=== PATIENT | female | born 1955 | race Caucasian/White ===

== ENCOUNTER 2019-03-28 11:12 | Emergency (ER) | payer BC ==
[2019-03-28] MEDS ORDERED: Phenylephrine 0.5% Nasal Spray 15 ML Bot NASBOTH ONE (11:44)
--- NOTE | 2019-03-28 11:49 | EDM.PDOC ---
ED HPI GENERAL MEDICAL PROBLEM - General Chief Complaint: ENT Problem Stated Complaint: BLOODY NOSE FOR 1 HOUR Time Seen by Provider: 03/28/19 11:25 Source of Information: Reports: Patient History Limitations: Reports: No Limitations - History of Present Illness INITIAL COMMENTS - FREE TEXT/NARRATIVE: 63 y/o female with history of HTN presents to ER with cc nose bleed. She reports the bleeding started about 1000 am this morning. She reports her blood pressure is elevated this morning. She has not taken her B/P medications yet. She denies any weakness, fatigue or dizziness. She states she has had a nose bleed one other time. Her PCP is Miriam Dick. She is no apparent distress at this time. Onset: Today, Sudden Onset Date: 03/28/19 Onset Time: 10:00 Duration: Getting Worse Location: Reports: Face Severity: Mild Improves with: Reports: None Worsens with: Reports: None Associated Symptoms: Denies: Chest Pain, Cough, Fever/Chills, Shortness of Breath, Syncope - Related Data Allergies Allergy/AdvReac Type Severity Reaction Status Date / Time No Known Allergies Allergy Verified 03/28/19 11:26 Home Meds: Home Meds Lisinopril/Hydrochlorothiazide [Lisinopril-Hctz 10-12.5 mg Tab] 1 tab PO 1200 [History] Simvastatin [Zocor] 40 mg PO 1200 03/28/19 [History] Past Medical History Cardiovascular History: Reports: High Cholesterol, Hypertension Social & Family History - Tobacco Use Smoking Status *Q: Current Every Day Smoker Years of Tobacco use: 40 Packs/Tins Daily: 1 - Caffeine Use Caffeine Use: Reports: Coffee - Recreational Drug Use Recreational Drug Use: No ED ROS ENT - Review of Systems Review Of Systems: See Below Constitutional: Denies: Fever, Chills HEENT: Reports: Glasses, Nosebleed Respiratory: Denies: Shortness of Breath Cardiovascular: Denies: Chest Pain Endocrine: Denies: Fatigue GI/Abdominal: Reports: No Symptoms Musculoskeletal: Reports: No Symptoms Skin: Reports: No Symptoms Neurological: Reports: No Symptoms Psychiatric: Reports: No Symptoms Hematologic/Lymphatic: Reports: No Symptoms Immunologic: Reports: No Symptoms ED EXAM, ENT - Physical Exam Exam: See Below Exam Limited By: No Limitations General Appearance: Alert, WD/WN, No Apparent Distress Nose: Normal Inspection, Normal Mucousa, No Blood. No: Nasal Deformity, Nasal Tenderness, Septal Deformity, Active Bleeding Mouth/Throat: Normal Inspection, Normal Gums, Normal Lips, Normal Oropharynx, Normal Teeth Respiratory/Chest: No Respiratory Distress, Lungs Clear, Normal Breath Sounds, No Accessory Muscle Use, Chest Non-Tender Cardiovascular: Normal Peripheral Pulses, Regular Rate, Rhythm, No Edema, No Gallop, No JVD, No Murmur, No Rub Neurological: Alert, Oriented, Normal Cognition, Normal Gait Psychiatric: Normal Affect, Normal Mood Skin: Warm, Dry, Intact, Normal Color, No Rash Lymphatic: No Adenopathy Course - Vital Signs Last Recorded V/S: Last Vital Signs Temp 98.7 F 03/28/19 11:22 Pulse 100 03/28/19 11:22 Resp 20 03/28/19 11:22 BP 154/98 H 03/28/19 11:22 Pulse Ox 96 03/28/19 11:22 - Orders/Labs/Meds Meds: Medications Discontinued Medications Generic Name Dose Route Start Last Admin Trade Name Barbie PRN Reason Stop Dose Admin Oxymetazoline HCl 1 ml 03/28/19 11:50 03/28/19 11:55 Afrin Original 0.05% Nasal [place] BRAYAN 03/28/19 11:51 Not Given ONETIME ONE Oxymetazoline HCl 1 ml 03/28/19 11:55 03/28/19 11:56 Nasal Decongestant [place] BRAYAN 03/28/19 11:56 1 ml ONETIME ONE Administration Oxymetazoline HCl Confirm 03/28/19 11:53 03/28/19 11:56 Nasal Decongestant [place] Administered 03/28/19 11:54 Not Given Dose 30 ml .ROUTE .STK-MED ONE Phenylephrine HCl 1 ml 03/28/19 11:44 03/28/19 11:55 Herman-Synephrine 0.5% Regular Nasal [place] NASBOTH 03/28/19 11:45 Not Given ONETIME ONE - Re-Assessments/Exams Free Text/Narrative Re-Assessment/Exam: 03/28/19 12:17 hemostasis obtained after using nose clamp and neosynephrine. I will monitor 10 more minutes then discharge home. 03/28/19 12:33 Hemostasis is still presents. I will discharge home with instructions to follow up with her PCP. Instructed no to blow or pick her nose. I recommend she take B/P medication as prescribed and to use a cool mist vaporizer. Instructed to return to the ER for any new or acute worsening symptoms. Patient verbalized understanding and is comfortable with plan for discharge. Departure - Departure Time of Disposition: 12:35 Disposition: Home, Self-Care 01 Condition: Good Clinical Impression: Bloody nose - Discharge Information Instructions: Nosebleed, [id number] Referrals: Miriam Dick NP [Primary Care Provider] - Forms: ED Department Discharge Additional Instructions: You have been diagnosis with a nose bleed. I recommend you not blow or pick your nose for a few day. Monitor your B/P and take medications as prescribed. I recommend you use a cool mist vaporizer. Follow up with your PCP. Return to the ER for any new or acute worsening symptoms.
[2019-03-28] MEDS ORDERED: Oxymetazoline 0.05% Nasal Spray 15 ML Bottle NAS ONE (11:50)
[2019-03-28] MEDS ORDERED: Oxymetazoline 0.05% Nasal Spray 30 ML Bottle ONE (11:53)
[2019-03-28] MEDS ORDERED: Oxymetazoline 0.05% Nasal Spray 30 ML Bottle NAS ONE (11:55)
== END 2019-03-28 12:45 | disposition home or self-care (01) ==
LOC: JD.ED 11:12
DX: R04.0 Epistaxis (principal); I10 Essential (primary) hypertension; F17.210 Nicotine dependence, cigarettes, uncomplicated
CPT/HCPCS: 99283

== ENCOUNTER 2021-07-19 14:17 | Emergency (ER) | payer MEDICARE, OTHER ==
[2021-07-19] MEDS ORDERED: Albuterol 0.083% 2.5 MG/3 ML Neb Soln NEB ONE (16:30)
[2021-07-19] MEDS ORDERED: predniSONE 20 MG Tab PO STA (17:16)
[2021-07-19] MEDS ORDERED: Benzonatate 100 MG Cap PO ONE ×2 (17:16→17:19)
[2021-07-19] MEDS ORDERED: Azithromycin 250 MG Tab PO STA (17:16)
[2021-07-19] MEDS ORDERED: Albuterol 6.7 GM Inhaler INH PRN (17:16)
--- NOTE | 2021-07-19 17:25 | EDM.PDOC ---
ED HPI GENERAL MEDICAL PROBLEM - General Chief Complaint: Respiratory Problem Stated Complaint: COVID- SENT BY [place] Time Seen by Provider: 07/19/21 14:39 Source of Information: Reports: Patient History Limitations: Reports: No Limitations - History of Present Illness INITIAL COMMENTS - FREE TEXT/NARRATIVE: 65-year-old female presents the emergency department with complaints of cough, chest congestion and shortness of breath. She states that the symptoms started about 3 days ago. She went to the walk-in clinic today and they sent her to the emergency department. Patient denies any recent fever, chills, nausea, vomiting or diarrhea. She denies headache or sore throat. She denies any other symptoms. Of note, the patient is a pack-a-day smoker for the past 50 years. Her primary care provider is Latanya Dick. She denies any abdominal pain or urinary symptoms. - Related Data Allergies Allergy/AdvReac Type Severity Reaction Status Date / Time choline fenofibrate Allergy Hives Verified 07/19/21 14:40 [From Trilipix] Home Meds: Home Meds Lisinopril/Hydrochlorothiazide [Lisinopril-Hctz 10-12.5 mg Tab] 1 tab PO 1200 03/28/19 [History] Simvastatin [Zocor] 40 mg PO 1200 03/28/19 [History] Azithromycin [Zithromax] 250 mg PO DAILY #4 tablet 07/19/21 [Rx] Benzonatate [Tessalon Perle] 100 mg PO TID PRN #18 capsule 07/19/21 [Rx] predniSONE [Prednisone] 40 mg PO DAILY #8 tablet 07/19/21 [Rx] Past Medical History Cardiovascular History: Reports: High Cholesterol, Hypertension 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 ED EXAM, GENERAL - Physical Exam Exam: See Below Exam Limited By: No Limitations General Appearance: Alert, WD/WN, Mild Distress Ears: Normal External Exam, Hearing Grossly Normal Nose: Normal Inspection Throat/Mouth: Normal Inspection, Normal Lips, Normal Voice, No Airway Compromise Head: Atraumatic Neck: Normal Inspection, Supple Respiratory/Chest: Lungs Clear, No Accessory Muscle Use, Chest Non-Tender, Decreased Breath Sounds Cardiovascular: Normal Peripheral Pulses, Regular Rate, Rhythm, No Edema, No Murmur Peripheral Pulses: 2+: Radial (L), Radial (R) GI/Abdominal: Normal Bowel Sounds, Soft, Non-Tender, No Distention (Female) Exam: Deferred Rectal (Female) Exam: Deferred Back Exam: Normal Inspection Extremities: Normal Inspection, Normal Range of Motion, Non-Tender, No Pedal Edema, Normal Capillary Refill Neurological: Alert, Oriented, Normal Cognition Psychiatric: Normal Affect, Normal Mood Skin Exam: Warm, Dry, Intact, Normal Color, No Rash Lymphatic: No Adenopathy Course - Vital Signs Text/Narrative:: As stated above, patient presents for a 3-day history of cough, chest congestion and shortness of breath. She does have a significant smoking history and likely has COPD. Chest x-ray and Covid swab have been ordered on the patient. Lung sounds are diminished throughout. Patient's O2 saturations when I am sitting at the bedside with her are 91 to 92% however when she does begin to cough they dropped down to about 84 to 85%. I will also order albuterol nebulizer treatment on the patient. Last Recorded V/S: Last Vital Signs Temp 98.0 F 07/19/21 14:38 Pulse 91 07/19/21 14:38 Resp 22 H 07/19/21 14:38 BP 165/104 H 07/19/21 14:38 Pulse Ox 91 L 07/19/21 16:30 - Orders/Labs/Meds Orders: Active Orders 24 hr Category Date Time Status RT Aerosol Therapy [RC] ASDIRECTED Care 07/19/21 16:30 Active RT Post Treatment Assessment [RC] Click to Edit Care 07/19/21 17:17 Ordered RT Pre-Treatment Assessment [RC] Click to Edit Care 07/19/21 17:17 Ordered Chest 2V [CR] Stat Exams 07/19/21 16:07 Taken Albuterol [Proventil HFA] Med 07/19/21 17:16 Ordered See Dose Instructions INH Q2H PRN Azithromycin [Zithromax] Med 07/19/21 17:16 Stat 500 mg PO NOW STA Benzonatate [Tessalon Perles] Med 07/19/21 17:16 Once 100 mg PO ONETIME ONE Benzonatate [Tessalon Perles] Med 07/19/21 17:19 Once 100 mg PO ONETIME ONE predniSONE Med 07/19/21 17:16 Stat 40 mg PO NOW STA Medication Orders Albuterol (Albuterol 6.7 Gm Inhaler) 0 gm INH Q2H PRN PRN Reason: Shortness of Breath Azithromycin (Azithromycin 250 Mg Tab) 500 mg PO NOW STA Stop: 07/19/21 17:17 Benzonatate (Benzonatate 100 Mg Cap) 100 mg PO ONETIME ONE Stop: 07/19/21 17:17 Prednisone (Prednisone 20 Mg Tab) 40 mg PO NOW STA Stop: 07/19/21 17:17 Labs: Laboratory Tests 07/19/21 Range/Units 14:44 SARS-CoV-2 RNA (RADHA) Negative (NEGATIVE) Meds: Medications Generic Name Dose Route Start Last Admin Trade Name Freq PRN Reason Stop Dose Admin Albuterol 0 gm 07/19/21 17:16 Albuterol 6.7 Gm Inhaler INH Q2H PRN Shortness of Breath Azithromycin 500 mg 07/19/21 17:16 Azithromycin 250 Mg Tab PO 07/19/21 17:17 NOW STA Benzonatate 100 mg 07/19/21 17:16 Benzonatate 100 Mg Cap PO 07/19/21 17:17 ONETIME ONE Prednisone 40 mg 07/19/21 17:16 Prednisone 20 Mg Tab PO 07/19/21 17:17 NOW STA Discontinued Medications Generic Name Dose Route Start Last Admin Trade Name Freq PRN Reason Stop Dose Admin Albuterol 2.5 mg 07/19/21 16:30 07/19/21 16:50 Albuterol 0.083% 2.5 Mg/3 Ml Neb Soln NEB 07/19/21 16:31 2.5 mg ONETIME ONE Administration - Re-Assessments/Exams Free Text/Narrative Re-Assessment/Exam: 07/19/21 17:27 Chest xray was reviewed by myself and Dr. Wasserman. Nothing acute is appreciated. Formal radiologist report is pending. I did discuss with the patient the fact that her oxygen levels do drop when she is coughing and that this is likely a COPD exacerbation. Did offer admission in the hospital however we do not have any beds available so she would need to be transferred to [place]. Patient adamantly refuses admission into the hospital. I have elected to treat her with Zithromax 500 mg p.o. x1 dose, prednisone 40 mg p.o. x1 dose. She will be given Tessalon Perles for her cough. She will be discharged to home and I have sent a prescription for Zithromax 250 mg p.o. x4 days as well as prednisone 40 mg daily times another 4 days. She will be sent h ome with an albuterol inhaler. I have notified her that she will need to follow-up with her primary care provider in 1 week for reevaluation. She states she is agreeable to this. Departure - Departure Time of Disposition: 17:19 Disposition: Home, Self-Care 01 Condition: Good Clinical Impression: COPD exacerbation - Discharge Information Prescriptions: predniSONE [Prednisone] 40 mg PO DAILY #8 tablet Benzonatate [Tessalon Perle] 100 mg PO TID PRN #18 capsule PRN Reason: Cough Azithromycin [Zithromax] 250 mg PO DAILY #4 tablet Instructions: Chronic Obstructive Pulmonary Disease Exacerbation, [id number] Referrals: Miriam Dick LEAD TELLER [Primary Care Provider] - Additional Instructions: You were seen in the emergency department today with increased cough and shortness of breath. Covid swab was completed and this was negative. Chest x- ray was completed which did not show pneumonia however I believe you have an exacerbation of COPD. While in the emergency department you received a nebulizer treatment which did seem to help slightly. You were given Zithromax 500 mg which is an antibiotic. I have sent prescription to your pharmacy for 4 250 mg tablets. Take 1 tablet daily until gone. I have also sent a prescription for prednisone 40 mg to be taken daily. You were also given this while in the emergency department. I have sent a prescription for a medication called Tessalon Perles. You may take 1-2 tabs 3 times daily for cough. You were given the first dose in the emergency department as well. You are also giv en an albuterol inhaler. He may take 2 puffs every 2-4 hours as needed for shortness of breath. However, the side effect of this can be a rapid heartbeats to be aware of this if you are using it every 2 hours. Go home and rest. Drink plenty of fluids. You will need to follow-up with Diamond Dick in about a week for reevaluation. Should your symptoms worsen or change, do not hesitate returning to the emergency department. Sepsis Event Note (ED) - Focused Exam Vital Signs: Vital Signs Temp Pulse Resp BP Pulse Ox Pulse Ox 07/19/21 16:30 91 L 07/19/21 14:38 98.0 F 91 22 H 165/104 H 90 L - My Orders Last 24 Hours: My Active Orders 07/19/21 16:07 Chest 2V [CR] Stat 07/19/21 16:30 RT Aerosol Therapy [RC] ASDIRECTED 07/19/21 17:16 Albuterol [Proventil HFA] See Dose Instructions INH Q2H PRN Benzonatate [Tessalon Perles] 100 mg PO ONETIME ONE 07/19/21 17:16 Azithromycin [Zithromax] 500 mg PO NOW STA predniSONE 40 mg PO NOW STA 07/19/21 17:17 RT Post Treatment Assessment [RC] Click to Edit RT Pre-Treatment Assessment [RC] Click to Edit 07/19/21 17:19 Benzonatate [Tessalon Perles] 100 mg PO ONETIME ONE - Assessment/Plan Last 24 Hours: My Active Orders 07/19/21 16:07 Chest 2V [CR] Stat 07/19/21 16:30 RT Aerosol Therapy [RC] ASDIRECTED 07/19/21 17:16 Albuterol [Proventil HFA] See Dose Instructions INH Q2H PRN Benzonatate [Tessalon Perles] 100 mg PO ONETIME ONE 07/19/21 17:16 Azithromycin [Zithromax] 500 mg PO NOW STA predniSONE 40 mg PO NOW STA 07/19/21 17:17 RT Post Treatment Assessment [RC] Click to Edit RT Pre-Treatment Assessment [RC] Click to Edit 07/19/21 17:19 Benzonatate [Tessalon Perles] 100 mg PO ONETIME ONE
--- NOTE | 2021-07-19 17:34 | CR ---
Chest: 2 views of the chest were obtained. Comparison: No previous chest imaging is available. Heart is slightly enlarged. Lucency is noted along the lateral left chest most likely representing breast artifact. Lungs are hyperinflated compatible with emphysematous change. No definite acute parenchymal change is seen. Bony structures appear within normal limits for the patient's age. Impression: 1. Emphysematous change. 2. Other findings as noted above. 3. Nothing acute is definitely appreciated. Diagnostic code #2
== END 2021-07-19 17:43 | disposition home or self-care (01) ==
LOC: JD.ED 14:17
DX: J44.1 Chronic obstructive pulmonary disease with (acute) exacerbation (principal); E78.00 Pure hypercholesterolemia, unspecified; I10 Essential (primary) hypertension; Z72.0 Tobacco use; Z88.8 Allergy status to other drugs, medicaments and biological substances; Z79.899 Other long term (current) drug therapy; Z20.822 Contact with and (suspected) exposure to COVID-19
CPT/HCPCS: 71046; 87635; 94640; 99285; A9270; J7512; 99283; U0002

== ENCOUNTER 2021-10-30 14:58 | Emergency (ER) | payer MEDICARE, OTHER ==
[2021-10-30] MEDS ORDERED: Sodium Chloride 0.9% 10 ML Syringe FLUSH PRN (15:27)
[2021-10-30] MEDS ORDERED: Albuterol/Ipratropium 3.0-0.5 MG/3 ML Neb Soln NEB ONE ×2 (15:32→18:07)
--- NOTE | 2021-10-30 15:41 | EDM.PDOC ---
ED HPI GENERAL MEDICAL PROBLEM - General Chief Complaint: Respiratory Problem Stated Complaint: SOB Time Seen by Provider: 10/30/21 15:28 Source of Information: Reports: Patient, RN Notes Reviewed History Limitations: Reports: No Limitations - History of Present Illness INITIAL COMMENTS - FREE TEXT/NARRATIVE: Patient is a 66-year-old female who presents to the ER for evaluation of her respiratory difficulty. States she has had a cold for about the last 2 days. Not complaining of any fevers, but is having a cough and shortness of breath. Patient used to smoke many years ago. States that she has respiratory inhalers at home and has been using these over the past few days however they do not seem to be working well for her at all. She is audibly wheezy when you enter the room, and O2 sats were 66% on room air at triage. She was put on oxygen, and she has improved to a roughly 90% with 4 L. Patient's primary care provider is Miriam Dick. Patient has not been around anyone that is been sick that she is aware of. - Related Data Allergies Allergy/AdvReac Type Severity Reaction Status Date / Time choline fenofibrate Allergy Hives Verified 10/30/21 15:11 [From Trilipix] Home Meds: Home Meds Lisinopril/Hydrochlorothiazide [Lisinopril-Hctz 10-12.5 mg Tab] 1 tab PO 1200 03/28/19 [History] Simvastatin [Zocor] 40 mg PO 1200 03/28/19 [History] Azithromycin [Zithromax] 250 mg PO DAILY #4 tablet 07/19/21 [Rx] Benzonatate [Tessalon Perle] 100 mg PO TID PRN #18 capsule 07/19/21 [Rx] predniSONE [Prednisone] 40 mg PO DAILY #8 tablet 07/19/21 [Rx] Past Medical History Cardiovascular History: Reports: High Cholesterol, Hypertension Genitourinary History: Reports: Renal Calculus 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 ED EXAM, GENERAL - Physical Exam Exam: See Below Exam Limited By: No Limitations General Appearance: Alert, WD/WN, No Apparent Distress Respiratory/Chest: No Accessory Muscle Use, Chest Non-Tender, Decreased Breath Sounds, Wheezing (bilateral diffuse end expiratory), Other (pt has congested non productive cough) Cardiovascular: Normal Peripheral Pulses, Regular Rate, Rhythm, No Edema GI/Abdominal: Normal Bowel Sounds, Soft, Non-Tender, No Distention, No Mass Extremities: Normal Inspection, Normal Capillary Refill Neurological: Alert, Oriented, Normal Cognition, No Motor/Sensory Deficits Psychiatric: Normal Affect, Normal Mood Skin Exam: Warm, Dry, Intact, Normal Color, No Rash #1 Interpretation EKG Date: 10/30/21 Time: 16:30 Rhythm: NSR Rate (Beats/Min): 90 [place]: RAD-Right [place] Deviation P-Wave: Present QRS: Normal ST-T: Normal QT: Normal EKG Interpretation Comments: No obvious ischemia or acute ST changes noted, reviewed by myself and Dr. Wasserman. She did have 1 PAC on EKG, there is a lot of baseline artifact as well compounding things. But no acute abnormalities appreciated. Course - Vital Signs Last Recorded V/S: Last Vital Signs Temp 97 F 10/30/21 15:06 Pulse 94 10/30/21 18:00 Resp 24 H 10/30/21 18:00 BP 134/80 10/30/21 18:00 Pulse Ox 95 10/30/21 18:20 - Orders/Labs/Meds Orders: Active Orders 24 hr Category Date Time Status Oxygen Therapy, ED [RC] ASDIRECTED Care 10/30/21 15:26 Active Peripheral IV Care [RC] . DIRECTED Care 10/30/21 15:27 Active RT Aerosol Therapy [RC] ASDIRECTED Care 10/30/21 15:32 Active Heparin Sodium/D5W [Heparin 25,000 Units in D5W 500 ML] Med 10/30/21 19:45 Active 25,000 units in 500 ml IV TITRATE Sodium Chloride 0.9% [Saline Flush] Med 10/30/21 15:27 Active 10 ml FLUSH ASDIRECTED PRN Peripheral IV Insertion Adult [OM.PC] Routine Oth 10/30/21 15:27 Ordered Medication Orders Heparin Sodium/Dextrose (Heparin 25,000 Units In D5w 500 Ml) 25,000 units in 500 mls @ 17.636 mls/hr IV TITRATE ANNAMARIE; Protocol Last Admin: 10/30/21 20:06 Dose: 12 units/kg/hr, 17.636 mls/hr Documented by: JAMILAH Cosigned by: BARBIE Sodium Chloride (Sodium Chloride 0.9% 10 Ml Syringe) 10 ml FLUSH ASDIRECTED PRN PRN Reason: Keep Vein Open Last Admin: 10/30/21 16:31 Dose: 10 ml Documented by: ALEXANDRA Labs: Laboratory Tests 10/30/21 10/30/21 10/30/21 Range/Units 15:15 15:15 15:15 WBC 13.04 H (3.98-10.04) K/mm3 RBC 5.22 (3.98-5.22) M/mm3 Hgb 16.2 H (11.2-15.7) gm/dl Hct 47.5 H (34.1-44.9) % MCV 91.0 (79.4-94.8) fl MCH 31.0 (25.6-32.2) pg MCHC 34.1 (32.2-35.5) g/dl RDW Std Deviation 42.7 (36.4-46.3) fL Plt Count 255 (182-369) K/mm3 MPV 10.6 (9.4-12.3) fl Neut % (Auto) 80.9 H (34.0-71.1) % Lymph % (Auto) 10.4 L (19.3-51.7) % [place] % (Auto) 5.7 (4.7-12.5) % Eos % (Auto) 2.6 (0.7-5.8) Baso % (Auto) 0.2 (0.1-1.2) % Neut # (Auto) 10.56 H (1.56-6.13) K/mm3 Lymph # (Auto) 1.35 (1.18-3.74) K/mm3 [place] # (Auto) 0.74 H (0.24-0.36) K/mm3 Eos # (Auto) 0.34 (0.04-0.36) K/mm3 Baso # (Auto) 0.03 (0.01-0.08) K/mm3 PT (9.7-12.0) SECONDS INR APTT (21.7-31.4) SECONDS Sodium 131 L (136-145) mEq/L Potassium 4.4 (3.5-5.1) mEq/L Chloride 93 L (98-107) mEq/L Carbon Dioxide 25 (21-32) mEq/L Anion Gap 17.4 H (5-15) BUN 10 (7-18) mg/dL Creatinine 0.6 (0.55-1.02) mg/dL Est Cr Clr Drug Dosing 79.64 mL/min Estimated GFR (MDRD) > 60 (>60) mL/min BUN/Creatinine Ratio 16.7 (14-18) Glucose 133 H (70-99) mg/dL Calcium 9.5 (8.5-10.1) mg/dL Magnesium 2.1 (1.8-2.4) mg/dL Total Bilirubin 1.0 (0.2-1.0) mg/dL AST 23 (15-37) U/L ALT 31 (14-59) U/L Alkaline Phosphatase 98 (46-116) U/L Troponin I 0.215 H* (0.00-0.056) ng/mL C-Reactive Protein < 0.2 (<1.0) mg/dL NT-Pro-B Natriuret Pep (0-125) pg/mL Total Protein 8.2 (6.4-8.2) g/dl Albumin 4.2 (3.4-5.0) g/dl Globulin 4.0 gm/dL Albumin/Globulin Ratio 1.1 (1-2) Influenza Type A RNA (NEGATIVE) Influenza Type B RNA (NEGATIVE) SARS-CoV-2 RNA (RADHA) (NEGATIVE) 10/30/21 10/30/21 10/30/21 Range/Units 15:15 15:15 15:27 WBC (3.98-10.04) K/mm3 RBC (3.98-5.22) M/mm3 Hgb (11.2-15.7) gm/dl Hct (34.1-44.9) % MCV (79.4-94.8) fl MCH (25.6-32.2) pg MCHC (32.2-35.5) g/dl RDW Std Deviation (36.4-46.3) fL Plt Count (182-369) K/mm3 MPV (9.4-12.3) fl Neut % (Auto) (34.0-71.1) % Lymph % (Auto) (19.3-51.7) % [place] % (Auto) (4.7-12.5) % Eos % (Auto) (0.7-5.8) Baso % (Auto) (0.1-1.2) % Neut # (Auto) (1.56-6.13) K/mm3 Lymph # (Auto) (1.18-3.74) K/mm3 [place] # (Auto) (0.24-0.36) K/mm3 Eos # (Auto) (0.04-0.36) K/mm3 Baso # (Auto) (0.01-0.08) K/mm3 PT 10.5 (9.7-12.0) SECONDS INR 0.94 APTT 29.1 (21.7-31.4) SECONDS Sodium (136-145) mEq/L Potassium (3.5-5.1) mEq/L Chloride (98-107) mEq/L Carbon Dioxide (21-32) mEq/L Anion Gap (5-15) BUN (7-18) mg/dL Creatinine (0.55-1.02) mg/dL Est Cr Clr Drug Dosing mL/min Estimated GFR (MDRD) (>60) mL/min BUN/Creatinine Ratio (14-18) Glucose (70-99) mg/dL Calcium (8.5-10.1) mg/dL Magnesium (1.8-2.4) mg/dL Total Bilirubin (0.2-1.0) mg/dL AST (15-37) U/L ALT (14-59) U/L Alkaline Phosphatase (46-116) U/L Troponin I (0.00-0.056) ng/mL C-Reactive Protein (<1.0) mg/dL NT-Pro-B Natriuret Pep 491 H (0-125) pg/mL Total Protein (6.4-8.2) g/dl Albumin (3.4-5.0) g/dl Globulin gm/dL Albumin/Globulin Ratio (1-2) Influenza Type A RNA Negative (NEGATIVE) Influenza Type B RNA Negative (NEGATIVE) SARS-CoV-2 RNA (RADHA) Negative (NEGATIVE) 10/30/21 Range/Units 18:39 WBC (3.98-10.04) K/mm3 RBC (3.98-5.22) M/mm3 Hgb (11.2-15.7) gm/dl Hct (34.1-44.9) % MCV (79.4-94.8) fl MCH (25.6-32.2) pg MCHC (32.2-35.5) g/dl RDW Std Deviation (36.4-46.3) fL Plt Count (182-369) K/mm3 MPV (9.4-12.3) fl Neut % (Auto) (34.0-71.1) % Lymph % (Auto) (19.3-51.7) % [place] % (Auto) (4.7-12.5) % Eos % (Auto) (0.7-5.8) Baso % (Auto) (0.1-1.2) % Neut # (Auto) (1.56-6.13) K/mm3 Lymph # (Auto) (1.18-3.74) K/mm3 [place] # (Auto) (0.24-0.36) K/mm3 Eos # (Auto) (0.04-0.36) K/mm3 Baso # (Auto) (0.01-0.08) K/mm3 PT (9.7-12.0) SECONDS INR APTT (21.7-31.4) SECONDS Sodium (136-145) mEq/L Potassium (3.5-5.1) mEq/L Chloride (98-107) mEq/L Carbon Dioxide (21-32) mEq/L Anion Gap (5-15) BUN (7-18) mg/dL Creatinine (0.55-1.02) mg/dL Est Cr Clr Drug Dosing mL/min Estimated GFR (MDRD) (>60) mL/min BUN/Creatinine Ratio (14-18) Glucose (70-99) mg/dL Calcium (8.5-10.1) mg/dL Magnesium (1.8-2.4) mg/dL Total Bilirubin (0.2-1.0) mg/dL AST (15-37) U/L ALT (14-59) U/L Alkaline Phosphatase (46-116) U/L Troponin I 0.255 H* (0.00-0.056) ng/mL C-Reactive Protein (<1.0) mg/dL NT-Pro-B Natriuret Pep (0-125) pg/mL Total Protein (6.4-8.2) g/dl Albumin (3.4-5.0) g/dl Globulin gm/dL Albumin/Globulin Ratio (1-2) Influenza Type A RNA (NEGATIVE) Influenza Type B RNA (NEGATIVE) SARS-CoV-2 RNA (RADHA) (NEGATIVE) Meds: Medications Generic Name Dose Route Start Last Admin Trade Name Freq PRN Reason Stop Dose Admin Heparin Sodium/Dextrose 25,000 units in 500 mls @ 17.636 mls/hr 10/30/21 19:45 10/30/21 20:06 Heparin 25,000 Units In D5w 500 Ml IV 12 units/kg/hr TITRATE ANNAMARIE 17.636 mls/hr Administration Protocol 12 UNITS/KG/HR Sodium Chloride 10 ml 10/30/21 15:27 10/30/21 16:31 Sodium Chloride 0.9% 10 Ml Syringe FLUSH 10 ml ASDIRECTED PRN Administration Keep Vein Open Discontinued Medications Generic Name Dose Route Start Last Admin Trade Name Freq PRN Reason Stop Dose Admin Albuterol/Ipratropium 3 ml 10/30/21 15:32 10/30/21 16:24 Albuterol/Ipratropium 3.0-0.5 Mg/3 Ml Neb Soln [facility] 10/30/21 15:33 3 ml ONETIME ONE Administration Albuterol/Ipratropium 3 ml 10/30/21 18:07 10/30/21 18:19 Albuterol/Ipratropium 3.0-0.5 Mg/3 Ml Neb Soln [facility] 10/30/21 18:08 3 ml ONETIME ONE Administration Aspirin 324 mg 10/30/21 16:21 10/30/21 16:35 Aspirin 81 Mg Tab.Chew PO 10/30/21 16:22 324 mg ONETIME ONE Administration Heparin Sodium (Porcine) 4,000 units 10/30/21 19:31 10/30/21 20:06 Heparin Sodium 5,000 Units/Ml Vial IVPUSH 10/30/21 19:32 4,000 units .BOLUS ONE Administration Methylprednisolone Sodium Succinate 125 mg 10/30/21 19:53 10/30/21 20:06 Methylprednisolone Sodium Succinate 125 Mg/2 Ml Sdv IVPUSH 10/30/21 19:54 125 mg ONETIME ONE Administration - Re-Assessments/Exams Free Text/Narrative Re-Assessment/Exam: 10/30/21 15:40 Patient presents to the ER for evaluation of her hypoxia, shortness of breath. We will go ahead and get x-rays, Covid swab was obtained at the time of triage, along with IV that was placed and labs were taken. Patient is on oxygen at this time. Patient does not typically wear oxygen at home. 10/30/21 17:02 Labs have resulted, white count mildly elevated at 13,000 with 80% neutrophils patient's troponin was elevated at 0.215 BNP mildly elevated at 491, CRP was negative, and her COVID-19 screen was negative as well. I did go in to reevaluate the patient and she states that she is feeling a little bit better, her wheezing has subsided a bit with the DuoNeb treatment. Due to the elevated troponin I ordered 324 mg p.o. aspirin initially and I will talk with cardiology at [facility] in [place], and possibly send the patient for further evaluation due to the elevated troponin levels. EKG did not show any obvious ST change or abnormalities and the patient has been chest pain-free. 10/30/21 19:33 Patient's repeat Trop did increase to 0.255. I did call Dr. Warren the [employer]ef[employer] plant operator at [facility], he does recommend that Heparin be started, so this has been ordered. Dr. Sarmiento, hospitalist on-call will ultimately accept the patient for transfer. Departure - Departure Time of Disposition: 19:35 Disposition: DC/Tfer to Acute Hospital 02 Condition: Good Clinical Impression: COPD with acute exacerbation, Hypoxia, Non-STEMI (non-ST elevated myocardial infarction) - Discharge Information Referrals: Miriam Dick NP [Primary Care Provider] - Forms: ED Department Discharge Sepsis Event Note (ED) - Evaluation Sepsis Screening Result: No Definite Risk - Focused Exam Vital Signs: Vital Signs Temp Pulse Resp BP Pulse Ox Pulse Ox 10/30/21 18:20 95 10/30/21 18:00 94 24 H 134/80 94 L 10/30/21 17:00 97 24 H 142/88 H 90 L 10/30/21 16:25 90 L 10/30/21 16:00 91 24 H 135/71 90 L 10/30/21 15:15 92 L 10/30/21 15:06 97 F 62 20 157/82 H 66 L - My Orders Last 24 Hours: My Active Orders 10/30/21 15:26 Oxygen Therapy, ED [RC] ASDIRECTED 10/30/21 15:27 Peripheral IV Care [RC] . DIRECTED Sodium Chloride 0.9% [Saline Flush] 10 ml FLUSH ASDIRECTED PRN Peripheral IV Insertion Adult [OM.PC] Routine 10/30/21 15:32 RT Aerosol Therapy [RC] ASDIRECTED 10/30/21 19:45 Heparin Sodium/D5W [Heparin 25,000 Units in D5W 500 ML] 25,000 units in 500 ml IV TITRATE - Assessment/Plan Last 24 Hours: My Active Orders 10/30/21 15:26 Oxygen Therapy, ED [RC] ASDIRECTED 10/30/21 15:27 Peripheral IV Care [RC] . DIRECTED Sodium Chloride 0.9% [Saline Flush] 10 ml FLUSH ASDIRECTED PRN Peripheral IV Insertion Adult [OM.PC] Routine 10/30/21 15:32 RT Aerosol Therapy [RC] ASDIRECTED 10/30/21 19:45 Heparin Sodium/D5W [Heparin 25,000 Units in D5W 500 ML] 25,000 units in 500 ml IV TITRATE
--- NOTE | 2021-10-30 16:00 | CR ---
Chest: Frontal view of the chest was obtained. Comparison: Prior chest x-ray of 07/19/21. Heart size and mediastinum are within normal limits. Lungs are hyperinflated compatible with emphysematous change. No acute parenchymal change is seen within the lungs. Bony structures show nothing acute. Impression: 1. Emphysematous change. 2. Nothing acute is seen on frontal chest x-ray. Diagnostic code #2
[2021-10-30 16:10] LABS: CORONAVIRUS COVID-19 NAA NEGATIVE (NEGATIVE)
[2021-10-30] MEDS ORDERED: Aspirin 81 MG Tab.Chew PO ONE (16:21)
[2021-10-30] MEDS ORDERED: Heparin Sodium 5,000 Units/ML Vial IVPUSH ONE (19:31)
[2021-10-30] MEDS ORDERED: Heparin Sodium/D5W 25,000 UNITS/500 ML BAG IV SCH (19:45)
[2021-10-30] MEDS ORDERED: methylPREDNISolone Sodium Succinate 125 MG/2 ML SDV IVPUSH ONE (19:53)
== END 2021-10-30 21:54 ==
LOC: JD.ED 14:58
DX: J44.1 Chronic obstructive pulmonary disease with (acute) exacerbation (principal); I21.4 Non-ST elevation (NSTEMI) myocardial infarction; R09.02 Hypoxemia; E78.00 Pure hypercholesterolemia, unspecified; I10 Essential (primary) hypertension; Z88.8 Allergy status to other drugs, medicaments and biological substances; Z79.899 Other long term (current) drug therapy; Z87.891 Personal history of nicotine dependence; Z20.822 Contact with and (suspected) exposure to COVID-19
CPT/HCPCS: 0240U; 36415; 71045; 80053; 83735; 83880; 84484; 85025; 85610; 85730; 86140; 93005; 94640; 96365; 96366; 96375; 99285; A9270; J1644; J2930; 93010; J7620-GY

== ENCOUNTER 2021-11-14 23:16 | Emergency (ER) | payer MEDICARE, OTHER ==
[2021-11-15] MEDS ORDERED: Albuterol 0.083% 2.5 MG/3 ML Neb Soln NEB ONE (00:01)
[2021-11-15] MEDS ORDERED: predniSONE 20 MG Tab PO STA (00:02)
--- NOTE | 2021-11-15 00:05 | EDM.PDOC ---
ED HPI GENERAL MEDICAL PROBLEM - General Chief Complaint: Respiratory Problem Stated Complaint: SOB Time Seen by Provider: 11/14/21 23:40 Source of Information: Reports: Patient History Limitations: Reports: No Limitations - History of Present Illness INITIAL COMMENTS - FREE TEXT/NARRATIVE: Mrs. Sprague is a very pleasant 66-year-old woman with a past medical history significant for PFT-proven COPD, who now presents the ED stating that she developed dyspnea with slight wheezing around 19:00 tonight, while sitting. She states that she took 2 inhalations of an albuterol MDI (without using a spacer chamber) and a single DuoNeb by nebulizer without improvement of her symptoms. She states that she has had similar symptoms many times in the past, but that she can usually successfully treat them at home. At triage, the patient's initial BP was found to be elevated 186/112, with tachycardia 122 bpm and slight tachypnea of 25 rpm. She was afebrile, but hypoxemic, with an initial SpO2 of 71% on room air, 94% on 4 L of oxygen per nasal cannula. She appeared to be cyanotic at triage. When I evaluated her, she appeared to be relatively comfortable, although preferred sitting upright, not quite tripoding. She does not appear to be in acute distress. The patient does not have home supplemental oxygen. Prior to tonight, the patient denies having a recent fever, chills, sore throat, ear pain, nasal or sinus congestion, cough, dyspnea, chest pain, palpitations, nausea, vomiting, constipation, diarrhea, abdominal pain, urinary symptoms, recent weight gain or weight loss, recent bloody bowel movements or black bowel movements, recent joint aches, headaches, or rashes. The patient's PCP is Miriam Dick NP. Her Canvas Shrinker is Dr. Wai Warren, at [facility]. She has received 2 Pfizer COVID vaccinations plus an influenza vaccination this season. - Related Data Allergies Allergy/AdvReac Type Severity Reaction Status Date / Time choline fenofibrate Allergy Hives Verified 11/14/21 23:28 [From Trilipix] Home Meds: Home Meds Lisinopril/Hydrochlorothiazide [Lisinopril-Hctz 10-12.5 mg Tab] 1 tab PO 1200 03/28/19 [History] Simvastatin [Zocor] 40 mg PO 1200 03/28/19 [History] Azithromycin [Zithromax] 250 mg PO DAILY #4 tablet 07/19/21 [Rx] Benzonatate [Tessalon Perle] 100 mg PO TID PRN #18 capsule 07/19/21 [Rx] predniSONE [Prednisone] 40 mg PO DAILY #8 tablet 07/19/21 [Rx] predniSONE [Prednisone] 1 tab PO BEDTIME #5 tablet 11/15/21 [Rx] Past Medical History Cardiovascular History: Reports: High Cholesterol, Hypertension Respiratory History: Reports: COPD (PFT-proven) Genitourinary History: Reports: Renal Calculus - Past Surgical History Cardiovascular Surgical History: Reports: Other (See Below) (Coronary angiogram x 2 - clean) Social & Family History - Tobacco Use Tobacco Use Status *Q: Current Every Day Tobacco User Years of Tobacco use: 48 Packs/Tins Daily: 1.5 Month/Year Tobacco Last Used: Quit Sep 2021 Tobacco Use Comment: Started smoking 1972 - Caffeine Use Caffeine Use: Reports: Coffee - Alcohol Use Alcohol Use History: Yes Alcohol Use Frequency: Socially - Recreational Drug Use Recreational Drug Use: No - Living Situation & Occupation Living situation: Reports: , with Spouse, with Family (2 sons) Occupation: Unemployed ED ROS GENERAL - Review of Systems Review Of Systems: Comprehensive ROS is negative, except as noted in HPI. ED EXAM, GENERAL - Physical Exam Exam: See Below Exam Limited By: No Limitations General Appearance: Alert, WD/WN, No Apparent Distress Eye Exam: Bilateral Eye: EOMI, Normal Inspection Ears: Normal External Exam, Hearing Grossly Normal Nose: Normal Inspection Throat/Mouth: Normal Inspection, Normal Lips, Normal Voice, No Airway Compromise Head: Atraumatic, Normocephalic Neck: Normal Inspection, Full Range of Motion Respiratory/Chest: No Accessory Muscle Use, Decreased Breath Sounds, Wheezing (faint, expiratory), Prolonged Expiration. No: Crackles, Rhonchi, Accessory Muscle Use Cardiovascular: Normal Peripheral Pulses, No Edema, No Gallop, No JVD, No Murmur, No Rub, Tachycardia (regular) Peripheral Pulses: 3+: Radial (L), Radial (R) GI/Abdominal: Normal Bowel Sounds, Soft, Non-Tender, No Organomegaly, No Distention, No Abnormal Bruit, No Mass Back Exam: Normal Inspection, Full Range of Motion, NT Extremities: Normal Inspection, Normal Range of Motion, No Pedal Edema, Normal Capillary Refill Neurological: Alert, Oriented, Normal Cognition, No Motor/Sensory Deficits Psychiatric: Normal Affect Skin Exam: Warm, Dry, Intact, Normal Color, No Rash #1 Interpretation EKG Date: 11/15/21 Time: 00:46 Rhythm: Other (Sinus tachycardia) Rate (Beats/Min): 108 [place]: RAD-Right [place] Deviation P-Wave: Present QRS: Other (Late transition) ST-T: Normal QT: Normal Comparison: No Change (10/30/2021) Course - Vital Signs Last Recorded V/S: Last Vital Signs Temp 36.1 C 11/14/21 23:28 Pulse 122 H 11/14/21 23:28 Resp 25 H 11/14/21 23:28 BP 186/112 H 11/14/21 23:28 Pulse Ox 94 L 11/15/21 02:12 - Orders/Labs/Meds Labs: Laboratory Tests 11/14/21 11/14/21 11/14/21 Range/Units 00:17 00:17 00:17 WBC 16.15 H (3.98-10.04) K/mm3 RBC 4.92 (3.98-5.22) M/mm3 Hgb 15.3 (11.2-15.7) gm/dl Hct 45.6 H (34.1-44.9) % MCV 92.7 (79.4-94.8) fl MCH 31.1 (25.6-32.2) pg MCHC 33.6 (32.2-35.5) g/dl RDW Std Deviation 43.6 (36.4-46.3) fL Plt Count 260 (182-369) K/mm3 MPV 10.0 (9.4-12.3) fl Neutrophils % (Manual) 82 H (40-60) % Band Neutrophils % 0 (0-10) % Lymphocytes % (Manual) 11 L (20-40) % Atypical Lymphs % 0 % Monocytes % (Manual) 3 (2-10) % Eosinophils % (Manual) 4 (0.7-5.8) % Basophils % (Manual) 0 L (0.1-1.2) Platelet Estimate Adequate Plt Morphology Comment Normal RBC Morph Comment Normal D-Dimer, Quantitative 0.25 (0.19-0.50) mg/L Puncture Site ABG pH (7.35-7.45) ABG pCO2 (35.0-45.0) mmHg ABG pO2 (80.0-100.0) mmHg ABG HCO3 (22.0-26.0) meq/L ABG O2 Saturation (96.0-97.0) % ABG Base Excess (-2-2.0) A-a Gradient mmHg O2 Delivery Device Oxygen Flow Rate FiO2 (21.00-100.00) % Sodium 127 L (136-145) mEq/L Potassium 4.5 (3.5-5.1) mEq/L Chloride 93 L (98-107) mEq/L Carbon Dioxide 27 (21-32) mEq/L Anion Gap 11.5 (5-15) BUN 11 (7-18) mg/dL Creatinine 0.6 (0.55-1.02) mg/dL Est Cr Clr Drug Dosing 81.32 mL/min Estimated GFR (MDRD) > 60 (>60) mL/min BUN/Creatinine Ratio 18.3 H (14-18) Glucose 149 H (70-99) mg/dL Lactic Acid (0.4-2.0) mmol/L Calcium 8.9 (8.5-10.1) mg/dL Magnesium 2.0 (1.8-2.4) mg/dL Troponin I 0.094 H* (0.00-0.056) ng/mL Influenza Type A RNA (NEGATIVE) Influenza Type B RNA (NEGATIVE) SARS-CoV-2 RNA (RADHA) (NEGATIVE) 11/14/21 11/14/21 11/15/21 Range/Units 00:17 23:33 00:25 WBC (3.98-10.04) K/mm3 RBC (3.98-5.22) M/mm3 Hgb (11.2-15.7) gm/dl Hct (34.1-44.9) % MCV (79.4-94.8) fl MCH (25.6-32.2) pg MCHC (32.2-35.5) g/dl RDW Std Deviation (36.4-46.3) fL Plt Count (182-369) K/mm3 MPV (9.4-12.3) fl Neutrophils % (Manual) (40-60) % Band Neutrophils % (0-10) % Lymphocytes % (Manual) (20-40) % Atypical Lymphs % % Monocytes % (Manual) (2-10) % Eosinophils % (Manual) (0.7-5.8) % Basophils % (Manual) (0.1-1.2) Platelet Estimate Plt Morphology Comment RBC Morph Comment D-Dimer, Quantitative (0.19-0.50) mg/L Puncture Site Rt radial ABG pH 7.30 L (7.35-7.45) ABG pCO2 56.8 H (35.0-45.0) mmHg ABG pO2 82.0 (80.0-100.0) mmHg ABG HCO3 27.4 H (22.0-26.0) meq/L ABG O2 Saturation 92.6 L (96.0-97.0) % ABG Base Excess 0.1 (-2-2.0) A-a Gradient 104 mmHg O2 Delivery Device Nasal cannula Oxygen Flow Rate 4.0 FiO2 36.00 (21.00-100.00) % Sodium (136-145) mEq/L Potassium (3.5-5.1) mEq/L Chloride (98-107) mEq/L Carbon Dioxide (21-32) mEq/L Anion Gap (5-15) BUN (7-18) mg/dL Creatinine (0.55-1.02) mg/dL Est Cr Clr Drug Dosing mL/min Estimated GFR (MDRD) (>60) mL/min BUN/Creatinine Ratio (14-18) Glucose (70-99) mg/dL Lactic Acid 1.0 (0.4-2.0) mmol/L Calcium (8.5-10.1) mg/dL Magnesium (1.8-2.4) mg/dL Troponin I (0.00-0.056) ng/mL Influenza Type A RNA Negative (NEGATIVE) Influenza Type B RNA Negative (NEGATIVE) SARS-CoV-2 RNA (RADHA) Negative (NEGATIVE) Meds: Medications Discontinued Medications Generic Name Dose Route Start Last Admin Trade Name Freq PRN Reason Stop Dose Admin Albuterol 2.5 mg 11/15/21 00:01 11/15/21 00:19 Albuterol 0.083% 2.5 Mg/3 Ml Neb Soln NEB 11/15/21 00:02 2.5 mg ONETIME ONE Administration Albuterol 0 gm 11/15/21 04:25 11/15/21 04:56 Albuterol 6.7 Gm Inhaler INH 11/15/21 04:26 2 puff ONETIME ONE Administration Albuterol/Ipratropium 3 ml 11/15/21 02:07 11/15/21 02:12 Albuterol/Ipratropium 3.0-0.5 Mg/3 Ml Neb Soln NEB 11/15/21 02:08 3 ml ONETIME ONE Administration Prednisone 60 mg 11/15/21 00:02 11/15/21 00:29 Prednisone 20 Mg Tab PO 11/15/21 00:03 60 mg ONETIME STA Administration - Re-Assessments/Exams Free Text/Narrative Re-Assessment/Exam: 11/15/21 00:01 The patient appears to be suffering from a COPD exacerbation. She has diminished breath sounds with faint expiratory wheezing and a prolonged expiratory phase. A swab for the SARS-CoV-2 virus and influenza A + B viruses was ordered at triage. I have ordered several blood tests, 2 sets of blood cultures, an ABG, a chest x-ray, and an ECG. In the meantime, the patient will be treated with oral prednisone and albuterol by nebulizer. 11/15/21 01:55 Two-view chest radiograph reviewed. The cardiac silhouette is within normal limits. No pulmonary vascular congestion. No pleural effusions. No focal infiltrate. No pneumothorax. There is hyperinflation and bilateral diaphragmat ic flattening, consistent with COPD. Formal read per the Radiologist pending. The patient's CBC is remarkable for leukocytosis of 16.15, but with 0% bandemia, and a Hct slightly elevated at 45.6, with a Hgb normal at 15.3, and the remainder of her CBC being unremarkable. Her BMP is remarkable for hyponatremia of 127, and mild hyperglycemia of 149, with the remainder of her BMP being unremarkable. Her magnesium level is within normal limits at 2.0. Her lactic acid level is within normal limits at 1.0. Her troponin is mildly elevated at 0.094. Her D-dimer is within normal limits at 0.25. Her ABG demonstrates a primary respiratory acidosis with secondary metabolic alkalosis. 11/15/21 02:07 The patient states that she feels a lot better, but at the same time cannot tell if there is any difference to how she feels from when she came in. On auscultation, she seems to be moving much more air. She still has some end- expiratory wheezes with a prolonged expiratory phase, but even that has improved. I have ordered a DuoNeb, to see if we can get even further improvement before we discharge her home. 11/15/21 03:55 On auscultation, the patient no longer has expiratory wheezing. I turned her supplemental oxygen off to see if she will require home supplemental oxygen. 11/15/21 04:27 The patient's oxygen saturation dropped to 85% on room air, and is now up to 94% on 2 L of oxygen per nasal cannula. We will make arrangements for the patient to receive supplemental home oxygen at 2 L continuously. I will submit a prescription for prednisone 20 mg nightly x 5 nights, starting tonight (Tuesday night). Departure - Departure Time of Disposition: 04:35 Disposition: Home, Self-Care 01 Condition: Good Clinical Impression: COPD exacerbation, Hypoxemia - Discharge Information *PRESCRIPTION DRUG MONITORING PROGRAM REVIEWED*: Not Applicable *COPY OF PRESCRIPTION DRUG MONITORING REPORT IN PATIENT [place]: Not Applicable Prescriptions: predniSONE [Prednisone] 1 tab PO BEDTIME #5 tablet Instructions: Chronic Obstructive Pulmonary Disease, Hypoxemia Referrals: Miriam Dick NP [Primary Care Provider] - Wai Warren MD [Ordering Only Provider] - Forms: ED Department Discharge Additional Instructions: You were seen in the emergency room for shortness of breath and wheezing. In the ER, your oxygen saturation was found to be low. Work-up in the ER included several blood tests, 2 sets of blood cultures, an arterial blood gas, a swab for the SARS-CoV-2 virus and influenza A + B viruses, a chest x-ray, and an ECG. Based on your history, physical exam, and ER tests, you were most likely suffering from an exacerbation of your underlying COPD. You were treated with albuterol, DuoNeb, and prednisone in the ER, with improvement of your symptoms. A prescription for prednisone has been sent to the [facility], located just south and across the [address] from [facility]. The pharmacy will be open between noon and 4 PM today. Take 1 tablet of prednisone every evening, starting this evening, 11/15/2021, as prescribed. Arrangements have been made for you to receive supplemental oxygen at home. You are to take 2 L of oxygen per nasal cannula continuously. Please follow-up with your PCP, Miriam Dick NP, at the next available appointment. If any other problems, please do not hesitate to return to the ER. Sepsis Event Note (ED) - Evaluation Sepsis Screening Result: No Definite Risk
[2021-11-15 00:26] LABS: CORONAVIRUS COVID-19 NAA NEGATIVE (NEGATIVE)
[2021-11-15] MEDS ORDERED: Albuterol/Ipratropium 3.0-0.5 MG/3 ML Neb Soln NEB ONE (02:07)
[2021-11-15] MEDS ORDERED: Albuterol 6.7 GM Inhaler INH ONE (04:25)
--- NOTE | 2021-11-15 08:45 | CR ---
Chest: PA and lateral views of the chest were obtained. Comparison: Prior chest x-ray 07/19/21 and 10/30/21. Heart size and mediastinum are within normal limits. Lungs are hyperinflated compatible with emphysematous change. Lungs show no acute parenchymal change. Bony structures show nothing acute. Impression: 1. Emphysematous change. 2. Nothing acute is definitely appreciated on two-view chest x-ray. Diagnostic code #2
== END 2021-11-15 07:15 | disposition home or self-care (01) ==
LOC: JD.ED 23:16
DX: J44.1 Chronic obstructive pulmonary disease with (acute) exacerbation (principal); R09.02 Hypoxemia; I10 Essential (primary) hypertension; E78.00 Pure hypercholesterolemia, unspecified; Z72.0 Tobacco use; Z88.1 Allergy status to other antibiotic agents; Z79.899 Other long term (current) drug therapy; Z20.822 Contact with and (suspected) exposure to COVID-19
CPT/HCPCS: 0240U; 36415; 36600; 71046; 80048; 82803; 83605; 83735; 84484; 85007; 85027; 85379; 87040; 93005; 94640; 99285; A9270; J7512; J7620-GY

== ENCOUNTER 2021-11-27 00:48 | Emergency (ER) | payer MEDICARE, OTHER ==
[2021-11-27] MEDS ORDERED: Albuterol 0.083% 2.5 MG/3 ML Neb Soln NEB ONE ×3 (01:24→02:33)
[2021-11-27] MEDS ORDERED: predniSONE 20 MG Tab PO STA (01:24)
--- NOTE | 2021-11-27 01:34 | EDM.PDOC ---
<PranayAnthony A - Last Filed: 11/27/21 07:00> ED HPI GENERAL MEDICAL PROBLEM - General Chief Complaint: Respiratory Problem Stated Complaint: SOB Time Seen by Provider: 11/27/21 00:57 Source of Information: Reports: Patient History Limitations: Reports: No Limitations - History of Present Illness INITIAL COMMENTS - FREE TEXT/NARRATIVE: Mrs. Sprague is a very pleasant 66-year-old woman with a past medical history significant for PFT-proven COPD, who now presents to the ED stating that she has been experiencing dyspnea on and off since this past 11/25/2021. She does not believe that she has been wheezing much. No recent cough or fever. She states that she took a DuoNeb tonight around midnight, which did not seem to help her symptoms. The patient was seen by me in this ED on 11/14/2021 with a similar presentation. At that time, her BP was found to be elevated, along with tachycardia and tachypnea. She was afebrile but hypoxemic with an initial SpO2 of 71% on room air, 94% on 4 L of oxygen per nasal cannula. Her physical exam demonstrated decreased breath sounds, expiratory wheezing, and a prolonged expiratory phase. Work-up included a CBC, BMP, magnesium level, lactic acid level, troponin, D-dimer, an ABG, a swab for the SARS-CoV-2 virus and influenza A + B viruses, and a chest x-ray. She was found to have hyponatremia of 127, her troponin was mildly elevated at 0.094, and her ABG demonstrated a primary respiratory acidosis with secondary metabolic alkalosis. Her chest x-ray found changes consistent with COPD, but was otherwise unremarkable. She was treated with prednisone, albuterol nebs, and a DuoNeb before being discharged home with a prescription for a 5-day course of prednisone and arrangements made for supplemental oxygen, 2 L per nasal cannula continuously. The patient states that since discharge, she has been using her supplemental oxygen continuously, as directed. She states that she followed up with her PCP on 11/16/2021, but that no changes were made in her management. At triage this morning, the patient's initial BP was found to be elevated at 197/102 with tachycardia of 116 bpm and slight tachypnea of 23 rpm. She was again afebrile, with an oxygen saturation of 75% on room air, 88% on 3 L of oxygen per nasal cannula. She appears to be somewhat dyspneic, preferring to sit upright, but does not appear to be in acute distress. Other than her respiratory symptoms, the patient denies having a recent fever, chills, sore throat, ear pain, nasal or sinus congestion, chest pain, palpitations, nausea, vomiting, constipation, diarrhea, abdominal pain, urinary symptoms, recent weight gain or weight loss, recent bloody bowel movements or black bowel movements, recent joint aches, headaches, or rashes. The patient's PCP is Miriam Dick, [facility]. Her Vessel Crew Member is Dr. Wai Warren, at [facility]. She has received 2 Pfizer COVSmart Lunches vaccinations plus an influenza vaccination this season. - Related Data Allergies Allergy/AdvReac Type Severity Reaction Status Date / Time choline fenofibrate Allergy Hives Verified 11/27/21 01:11 [From Trilipix] Home Meds: Home Meds Simvastatin [Zocor] 40 mg PO 1200 03/28/19 [History] Albuterol Sulfate 2.5 mg IH Q2H PRN #60 ml 11/27/21 [Rx] Albuterol [Take Home: Albuterol 18 GM, 1 INH Pack] 2 puff INH Q4HR PRN 11/27/21 [History] Doxycycline [Vibra-Tabs] 100 mg PO Q12HR #20 tab 11/27/21 [Rx] Ipratropium/Albuterol Sulfate [Iprat-Albut 0.5-3(2.5) mg/3 ml] 1 inh INH Q4HR 11/27/21 [History] lisinopriL [Lisinopril] 20 mg PO DAILY 11/27/21 [History] predniSONE [Prednisone] 0 mg PO BEDTIME 11/27/21 [History] predniSONE [Prednisone] 0 mg PO DAILY 11/27/21 [History] predniSONE [Prednisone] 20 mg PO ASDIRECTED #22 tablet 11/27/21 [Rx] Past Medical History Cardiovascular History: Reports: High Cholesterol, Hypertension Respiratory History: Reports: COPD (PFT-proven) Genitourinary History: Reports: Renal Calculus - Past Surgical History Cardiovascular Surgical History: Reports: Other (See Below) (Coronary angiogram x 2 - clean) Social & Family History - Tobacco Use Tobacco Use Status *Q: Former Tobacco User Years of Tobacco use: 48 Packs/Tins Daily: 1.5 Month/Year Tobacco Last Used: Quit Sep 2021 Tobacco Use Comment: Started smoking 1972 - Caffeine Use Caffeine Use: Reports: None - Alcohol Use Alcohol Use History: Yes Alcohol Use Frequency: Socially - Recreational Drug Use Recreational Drug Use: No - Living Situation & Occupation Living situation: Reports: , with Spouse, with Family (2 sons) Occupation: Unemployed ED ROS GENERAL - Review of Systems Review Of Systems: Comprehensive ROS is negative, except as noted in HPI. ED EXAM, GENERAL - Physical Exam Exam: See Below Exam Limited By: No Limitations General Appearance: Alert, WD/WN, Mild Distress (appears somewhat dyspneic, sitting upright) Eye Exam: Bilateral Eye: EOMI, Normal Inspection Ears: Normal External Exam, Hearing Grossly Normal Nose: Normal Inspection Throat/Mouth: Normal Inspection, Normal Lips, Normal Voice, No Airway Compromise Head: Atraumatic, Normocephalic Neck: Normal Inspection, Full Range of Motion Respiratory/Chest: No Accessory Muscle Use, Decreased Breath Sounds (throughou t), Wheezing (expiratory across all lung doan), Prolonged Expiration. No: Crackles, Rhonchi, Accessory Muscle Use Cardiovascular: Normal Peripheral Pulses, No Gallop, No JVD, No Murmur, No Rub, Tachycardia (regular) Peripheral Pulses: 3+: Radial (L), Radial (R) GI/Abdominal: Normal Bowel Sounds, Soft, Non-Tender, No Organomegaly, No Distention, No Abnormal Bruit, No Mass Back Exam: Normal Inspection, Full Range of Motion, NT Extremities: Normal Inspection, Normal Range of Motion, Normal Capillary Refill Neurological: Alert, Oriented, Normal Cognition, No Motor/Sensory Deficits Psychiatric: Normal Affect Skin Exam: Warm, Dry, Intact, Normal Color, No Rash Course - Re-Assessments/Exams Free Text/Narrative Re-Assessment/Exam: 11/27/21 01:24 The patient is likely suffering from a COPD exacerbation. I have ordered a work-up that includes numerous blood tests, 2 sets of blood cultures, an ABG, a swab for the SARS-CoV-2 virus and influenza A + B viruses, and a chest x-ray. In the meantime, the patient will be started on oral prednisone and an albuterol neb. 11/27/21 02:05 The patient's CBC is remarkable for leukocytosis of 12.95, a Hct slightly elevated at 46.7, with a Hgb normal at 15.3, and the remainder of her CBC being unremarkable. Her BMP is remarkable for mild hyponatremia of 131 and hyperglycemia of 171, with the remainder of her BMP being unremarkable. Her magnesium level is within normal limits at 1.9. Her troponin is mildly elevated at 0.095. Her D-dimer is within normal limits at 0.23. Her ABG demonstrates a primary respiratory acidosis with secondary metabolic alkalosis. Results of the patient's lactic acid level, swab for the SARS-CoV-2 virus and influenza A + B viruses, and chest x-ray are still pending. Review of prior labs finds that the patient's elevated troponin is chronic and essentially unchanged; it was 0.094 on 11/14/2021. 11/27/21 02:09 The patient just returned from radiology. Her lungs sound no better. I will order another albuterol neb treatment. 11/27/21 02:24 Two-view chest radiograph appears to be grossly normal. The cardiac silhouette is within normal limits. No pulmonary vascular congestion. No pleural effusions. No focal infiltrate. No pneumothorax. There is hyperinflation and bilateral diaphragmatic flattening, consistent with COPD. Formal read per the Radiologist pending. 11/27/21 02:28 The patient's lactic acid level is within normal limits at 0.6. 11/27/21 02:47 The patient's swab for the SARS-CoV-2 virus and influenza A + B viruses is negative for all. 11/27/21 06:39 Despite oral prednisone and several albuterol nebs, the patient's condition has not significantly improved. She still has audible expiratory wheezing and overall poor air movement. At this time, we do not have any beds available at this facility, but we are expecting a couple of beds to become available later today. I recommended continuing to treat her here in the ED until such time as she either improves well enough to go home or a bed becomes available. She agreed. 11/27/21 07:[address] Nathan and care of the patient turned over to him at this time for change of shift. Departure - Departure Disposition: Home, Self-Care 01 Clinical Impression: Decompensated COPD with exacerbation (chronic obstructive pulmonary disease) - Discharge Information Prescriptions: Albuterol Sulfate 2.5 mg IH Q2H PRN #60 ml PRN Reason: Asthma symptoms predniSONE [Prednisone] 20 mg PO ASDIRECTED #22 tablet Doxycycline [Vibra-Tabs] 100 mg PO Q12HR #20 tab Instructions: Chronic Obstructive Pulmonary Disease Exacerbation, [id number], COPD and Physical Activity Referrals: Miriam Dick NP [Primary Care Provider] - Forms: ED Department Discharge Sepsis Event Note (ED) - Evaluation Sepsis Screening Result: No Definite Risk <Raul Nathan - Last Filed: 11/27/21 15:35> Course - Vital Signs Last Recorded V/S: Last Vital Signs Temp 37.8 C 11/27/21 13:55 Pulse 114 H 11/27/21 13:55 Resp 28 H 11/27/21 13:55 BP 141/119 H 11/27/21 13:55 Pulse Ox 92 L 11/27/21 14:10 - Orders/Labs/Meds Orders: Active Orders 24 hr Category Date Time Status RT Aerosol Therapy [RC] ASDIRECTED Care 11/27/21 01:24 Active RT Aerosol Therapy [RC] ASDIRECTED Care 11/27/21 02:10 Active RT Aerosol Therapy [RC] ASDIRECTED Care 11/27/21 02:33 Active RT Aerosol Therapy [RC] ASDIRECTED Care 11/27/21 02:48 Active RT BiPAP/CPAP [RC] ASDIRECTED Care 11/27/21 11:48 Active BLOOD CULTURE [MREF] Stat Lab 11/27/21 01:40 Received BLOOD CULTURE [MREF] Stat Lab 11/27/21 01:45 Received Albuterol [Proventil Neb Soln] Med 11/27/21 10:00 Active 2.5 mg NEB Q2H Blood Culture x2 Reflex Set [OM.PC] Stat Oth 11/27/21 01:23 Ordered Medication Orders Albuterol (Albuterol 0.083% 2.5 Mg/3 Ml Neb Soln) 2.5 mg NEB Q2H [facility] Last Admin: 11/27/21 14:10 Dose: 2.5 mg Documented by: Admin: 11/27/21 11:36 Dose: 2.5 mg Documented by: Admin: 11/27/21 10:00 Dose: 2.5 mg Documented by: GISSEL Labs: Laboratory Tests 11/27/21 11/27/21 11/27/21 Range/Units 01:00 01:00 01:00 WBC 12.95 H (3.98-10.04) K/mm3 RBC 4.97 (3.98-5.22) M/mm3 Hgb 15.3 (11.2-15.7) gm/dl Hct 46.7 H (34.1-44.9) % MCV 94.0 (79.4-94.8) fl MCH 30.8 (25.6-32.2) pg MCHC 32.8 (32.2-35.5) g/dl RDW Std Deviation 43.7 (36.4-46.3) fL Plt Count 304 (182-369) K/mm3 MPV 10.3 (9.4-12.3) fl Neut % (Auto) 69.8 (34.0-71.1) % Lymph % (Auto) 15.1 L (19.3-51.7) % [place] % (Auto) 5.9 (4.7-12.5) % Eos % (Auto) 8.4 H (0.7-5.8) Baso % (Auto) 0.5 (0.1-1.2) % Neut # (Auto) 9.04 H (1.56-6.13) K/mm3 Lymph # (Auto) 1.95 (1.18-3.74) K/mm3 [place] # (Auto) 0.77 H (0.24-0.36) K/mm3 Eos # (Auto) 1.09 H (0.04-0.36) K/mm3 Baso # (Auto) 0.06 (0.01-0.08) K/mm3 D-Dimer, Quantitative 0.23 (0.19-0.50) mg/L Puncture Site ABG pH (7.35-7.45) ABG pCO2 (35.0-45.0) mmHg ABG pO2 (80.0-100.0) mmHg ABG HCO3 (22.0-26.0) meq/L ABG O2 Saturation (96.0-97.0) % ABG Base Excess (-2-2.0) [place] Test A-a Gradient mmHg O2 Delivery Device Oxygen Flow Rate FiO2 (21.00-100.00) % Sodium 131 L (136-145) mEq/L Potassium 4.4 (3.5-5.1) mEq/L Chloride 94 L (98-107) mEq/L Carbon Dioxide 28 (21-32) mEq/L Anion Gap 13.4 (5-15) BUN 14 (7-18) mg/dL Creatinine 0.6 (0.55-1.02) mg/dL Est Cr Clr Drug Dosing 79.64 mL/min Estimated GFR (MDRD) > 60 (>60) mL/min BUN/Creatinine Ratio 23.3 H (14-18) Glucose 171 H (70-99) mg/dL Lactic Acid (0.4-2.0) mmol/L Calcium 8.8 (8.5-10.1) mg/dL Magnesium 1.9 (1.8-2.4) mg/dL Troponin I 0.095 H* (0.00-0.056) ng/mL Influenza Type A RNA (NEGATIVE) Influenza Type B RNA (NEGATIVE) SARS-CoV-2 RNA (RADHA) (NEGATIVE) 11/27/21 11/27/21 11/27/21 Range/Units 01:40 01:54 01:59 WBC (3.98-10.04) K/mm3 RBC (3.98-5.22) M/mm3 Hgb (11.2-15.7) gm/dl Hct (34.1-44.9) % MCV (79.4-94.8) fl MCH (25.6-32.2) pg MCHC (32.2-35.5) g/dl RDW Std Deviation (36.4-46.3) fL Plt Count (182-369) K/mm3 MPV (9.4-12.3) fl Neut % (Auto) (34.0-71.1) % Lymph % (Auto) (19.3-51.7) % [place] % (Auto) (4.7-12.5) % Eos % (Auto) (0.7-5.8) Baso % (Auto) (0.1-1.2) % Neut # (Auto) (1.56-6.13) K/mm3 Lymph # (Auto) (1.18-3.74) K/mm3 [place] # (Auto) (0.24-0.36) K/mm3 Eos # (Auto) (0.04-0.36) K/mm3 Baso # (Auto) (0.01-0.08) K/mm3 D-Dimer, Quantitative (0.19-0.50) mg/L Puncture Site Rt radial ABG pH 7.24 L (7.35-7.45) ABG pCO2 68.8 H (35.0-45.0) mmHg ABG pO2 49.0 L (80.0-100.0) mmHg ABG HCO3 28.6 H (22.0-26.0) meq/L ABG O2 Saturation 79.4 L (96.0-97.0) % ABG Base Excess -0.6 (-2-2.0) [place] Test Positive A-a Gradient 93 mmHg O2 Delivery Device Nasal cannula Oxygen Flow Rate 3.0 FiO2 32.00 (21.00-100.00) % Sodium (136-145) mEq/L Potassium (3.5-5.1) mEq/L Chloride (98-107) mEq/L Carbon Dioxide (21-32) mEq/L Anion Gap (5-15) BUN (7-18) mg/dL Creatinine (0.55-1.02) mg/dL Est Cr Clr Drug Dosing mL/min Estimated GFR (MDRD) (>60) mL/min BUN/Creatinine Ratio (14-18) Glucose (70-99) mg/dL Lactic Acid 0.6 (0.4-2.0) mmol/L Calcium (8.5-10.1) mg/dL Magnesium (1.8-2.4) mg/dL Troponin I (0.00-0.056) ng/mL Influenza Type A RNA Negative (NEGATIVE) Influenza Type B RNA Negative (NEGATIVE) SARS-CoV-2 RNA (RADHA) Negative (NEGATIVE) Meds: Medications Generic Name Dose Route Start Last Admin Trade Name Freq PRN Reason Stop Dose Admin Albuterol 2.5 mg 11/27/21 10:00 11/27/21 14:10 Albuterol 0.083% 2.5 Mg/3 Ml Neb Soln NEB 2.5 mg Q2H ANNAMARIE Administration Discontinued Medications Generic Name Dose Route Start Last Admin Trade Name Freq PRN Reason Stop Dose Admin Albuterol 2.5 mg 11/27/21 01:24 11/27/21 01:46 Albuterol 0.083% 2.5 Mg/3 Ml Neb Soln NEB 11/27/21 01:25 2.5 mg ONETIME ONE Administration Albuterol 2.5 mg 11/27/21 02:10 11/27/21 02:18 Albuterol 0.083% 2.5 Mg/3 Ml Neb Soln NEB 11/27/21 02:11 2.5 mg ONETIME ONE Administration Albuterol 2.5 mg 11/27/21 02:33 11/27/21 02:52 Albuterol 0.083% 2.5 Mg/3 Ml Neb Soln NEB 11/27/21 02:34 2.5 mg ONETIME ONE Administration Albuterol 2.5 mg 11/27/21 03:00 11/27/21 08:04 Albuterol 0.083% 2.5 Mg/3 Ml Neb Soln NEB 2.5 mg Q1H ANNAMARIE Administration Guaifenesin 600 mg 11/27/21 09:08 11/27/21 09:24 Guaifenesin 600 Mg Tab.Er PO 11/27/21 09:09 600 mg ONETIME ONE Administration Prednisone 60 mg 11/27/21 01:24 11/27/21 01:31 Prednisone 20 Mg Tab PO 11/27/21 01:25 60 mg ONETIME STA Administration - Re-Assessments/Exams Free Text/Narrative Re-Assessment/Exam: 11/27/21 07:13 care has been assumed from Dr. Pires at change of shift. Patient is in the ED with an exacerbation of COPD. She has received continuous doses of albuterol and 60 mg of prednisone orally. Plan will be for admission to hospital if a bed becomes available. She is currently on 3 L of oxygen per nasal cannula with O2 sats of 93%. 11/27/21 09:06 on reexamination patient is moving very little air to the posterior lower lung doan with bilateral expiratory wheezes throughout all lung dona. She feels she is becoming dried out by the every hour albuterol dosing. It will be changed to every 2 hours since she is not getting much benefit at this time. The respiratory therapist indicates that she is really only taking about a half of a treatment at a time as well. She senses that it seems to make her worse. We will give her Mucinex 600 mg tablet p.o. 11/27/21 10:44 it was brought to my attention that there is no longer going to be a bed available in our hospital for this patient. She does not wish to be transferred down to [place]. She wishes to go home. She does have a home nebulizer and continues to use DuoNeb every 4-6 hours. I will write for albuterol nebs to be used in between as needed for wheezing and/or shortness of breath. She be placed on prednisone 20 mg twice daily for the next 8 days and then 20 mg once daily in the morning only for another 6 days to complete a 14- day course of therapy and therefore will not require weaning from the steroids. She will also be placed on Levaquin 500 mg once daily for 10 days. She is to follow-up with her primary care provider in 7 to 10 days time 11/27/21 11:19 patient and nurses both feel she is going to have a difficult time at home. We will therefore look for placement in [place] at her request. She does not want a wish to travel any further than [place]. I did speak to Dr. Mccullough on-call hospitalist at [facility] in [place] and he deferred admission at this time as he believes she will require BiPAP and they cannot put her on a general medical bed if she is on BiPAP. She likely would benefit from BiPAP since she does have an elevated PCO2 of 68.8. [facility] believes they will help discharges later this afternoon and potential bed may be available thereafter 1600 hrs. 11/27/21 12:09 she was getting increasingly tired and therefore she was started on BiPAP with 10 over 5 mmHg but this was maintaining O2 sats of only 89%. She will be adjusted to 12/7 by respiratory therapy at this time 11/27/21 14:20: Bed has also become available for this lady at [facility] in [place]. She will be transferred to that facility per ground ambulance. She has been accepted by --hospitalist. Reason for transfer is we are on diversion. Acute exacerbation of her COPD with hypoxemia with minimal improvement on BiPAP at 10 over 5 mmHg. Patient found it intolerable after approximately 2 hours. She remains on nasal cannula at 3 L/min but is a CO2 retainer. Departure - Departure Time of Disposition: 15:34 Condition: Fair - Discharge Information *PRESCRIPTION DRUG MONITORING PROGRAM REVIEWED*: Not Applicable *COPY OF PRESCRIPTION DRUG MONITORING REPORT IN PATIENT [place]MA: Not Applicable Sepsis Event Note (ED) - Focused Exam Vital Signs: Vital Signs Temp Pulse Resp BP Pulse Ox Pulse Ox 11/27/21 14:10 92 L 11/27/21 13:55 37.8 C 114 H 28 H 141/119 H 88 L 11/27/21 11:46 91 L 11/27/21 10:01 89 L 11/27/21 08:14 36.4 C 122 H 28 H 146/69 H 91 L 11/27/21 08:05 90 L 11/27/21 06:28 92 L 11/27/21 05:41 91 L 11/27/21 05:19 89 L 11/27/21 04:41 97 - My Orders Last 24 Hours: My Active Orders 11/27/21 10:00 Albuterol [Proventil Neb Soln] 2.5 mg NEB Q2H 11/27/21 11:48 RT BiPAP/CPAP [RC] ASDIRECTED - Assessment/Plan Last 24 Hours: My Active Orders 11/27/21 10:00 Albuterol [Proventil Neb Soln] 2.5 mg NEB Q2H 11/27/21 11:48 RT BiPAP/CPAP [RC] ASDIRECTED
[2021-11-27 02:44] LABS: CORONAVIRUS COVID-19 NAA NEGATIVE (NEGATIVE)
[2021-11-27] MEDS: Albuterol 0.083% 2.5 MG/3 ML Neb Soln NEB SCH ×9 (03:20→14:10)
--- NOTE | 2021-11-27 08:19 | CR ---
Chest: PA and lateral views of the chest were obtained. Comparison: Prior chest x-ray of 11/15/21. Heart size and mediastinum are normal. Lungs are clear but hyperinflated. Bony structures show nothing acute for the patient's age. Impression: 1. Emphysematous change. 2. Nothing acute is seen on 2-view chest x-ray. Diagnostic code #2
[2021-11-27] MEDS ORDERED: guaiFENesin 600 MG Tab.ER PO ONE (09:08)
== END 2021-11-27 15:50 | disposition home or self-care (01) ==
LOC: JD.ED 00:48
DX: J44.1 Chronic obstructive pulmonary disease with (acute) exacerbation (principal); I10 Essential (primary) hypertension; E78.00 Pure hypercholesterolemia, unspecified; Z20.822 Contact with and (suspected) exposure to COVID-19; Z88.8 Allergy status to other drugs, medicaments and biological substances; Z79.899 Other long term (current) drug therapy; Z87.891 Personal history of nicotine dependence
CPT/HCPCS: 0240U; 36415; 36600; 71046; 80048; 82803; 83605; 83735; 83880; 84484; 85025; 85379; 87040; 94640; 94660; 99285; A9270; J7512

== ENCOUNTER 2022-01-21 09:21 | Day surgery (SDC) | payer MEDICARE, OTHER ==
[2022-01-21] MEDS: Polymyxin B/Trimethoprim 10 ML Bottle EYELF SCH ×4 (09:21→10:44)
[2022-01-21] MEDS: Brimonidine 0.2% Ophth Soln 5 ML Bottle EYELF SCH ×4 (09:24→10:44)
[2022-01-21] MEDS: Phenylephrine 2.5% Ophth Soln 2 ML Bot EYELF SCH ×6 (09:27→10:24)
[2022-01-21] MEDS: Tropicamide 1% Ophth Soln 15 ML Bottle EYELF SCH ×4 (09:30→09:56)
[2022-01-21] MEDS: Tetracaine HCl/PF 0.5% 4 ML Bottle EYEBOTH SCH ×5 (10:08→10:29)
[2022-01-21] MEDS: Cefuroxime 10 MG/ML SYRINGE EYELF SCH ×2 (10:15→10:43)
[2022-01-21] MEDS: Lidocaine 1% PF 2 ML SDV INJECT SCH ×2 (10:15→10:30)
[2022-01-21] MEDS: Pilocarpine 4% Ophth Soln 15 ML Bot EYELF SCH ×2 (10:15→10:44)
== END 2022-01-21 10:54 | disposition home or self-care (01) ==
LOC: JD.SDS 09:21
PROVIDERS: ATTEND Ophthalmology
DX: E11.36 Type 2 diabetes mellitus with diabetic cataract (principal); H25.813 Combined forms of age-related cataract, bilateral; I10 Essential (primary) hypertension; J44.9 Chronic obstructive pulmonary disease, unspecified; E78.00 Pure hypercholesterolemia, unspecified; F17.200 Nicotine dependence, unspecified, uncomplicated; Z88.8 Allergy status to other drugs, medicaments and biological substances
CPT/HCPCS: 66984; C1780; J0697

== ENCOUNTER 2022-02-18 09:03 | Day surgery (SDC) | payer MEDICARE, OTHER ==
[2022-02-18] MEDS: Polymyxin B/Trimethoprim 10 ML Bottle EYERT SCH ×4 (08:20→10:08)
[2022-02-18] MEDS: Brimonidine 0.2% Ophth Soln 5 ML Bottle EYERT SCH ×4 (08:25→10:08)
[2022-02-18] MEDS: Phenylephrine 2.5% Ophth Soln 2 ML Bot EYERT SCH ×6 (08:30→09:48)
[2022-02-18] MEDS: Tropicamide 1% Ophth Soln 15 ML Bottle EYERT SCH ×4 (08:36→09:31)
[2022-02-18] MEDS: Tetracaine HCl/PF 0.5% 4 ML Bottle EYEBOTH SCH ×3 (09:24→09:55)
[2022-02-18] MEDS: Cefuroxime 10 MG/ML SYRINGE EYERT SCH ×2 (09:24→10:07)
[2022-02-18] MEDS: Lidocaine 1% PF 2 ML SDV INJECT SCH ×2 (09:25→09:56)
[2022-02-18] MEDS: Pilocarpine 4% Ophth Soln 15 ML Bot EYERT SCH ×2 (09:25→10:08)
== END 2022-02-18 10:16 | disposition home or self-care (01) ==
LOC: JD.SDS 09:03
PROVIDERS: ATTEND Ophthalmology
DX: E11.36 Type 2 diabetes mellitus with diabetic cataract (principal); H25.811 Combined forms of age-related cataract, right eye; H40.052 Ocular hypertension, left eye; H16.103 Unspecified superficial keratitis, bilateral; H16.223 Keratoconjunctivitis sicca, not specified as Sjogren's, bilateral; H02.834 Dermatochalasis of left upper eyelid; H02.831 Dermatochalasis of right upper eyelid; H54.7 Unspecified visual loss; F17.210 Nicotine dependence, cigarettes, uncomplicated; J44.9 Chronic obstructive pulmonary disease, unspecified; E78.00 Pure hypercholesterolemia, unspecified; I10 Essential (primary) hypertension; Z96.1 Presence of intraocular lens; Z88.8 Allergy status to other drugs, medicaments and biological substances; Z98.890 Other specified postprocedural states; Z79.51 Long term (current) use of inhaled steroids; Z79.899 Other long term (current) drug therapy
CPT/HCPCS: 66984; C1780; J0697

== ENCOUNTER 2022-05-31 18:00 | Emergency (ER) | payer MEDICARE, OTHER | END 2022-05-31 20:25 | disposition home or self-care (01) | LOC: JD.ED 18:00 | DX: R04.0 Epistaxis (principal); I10 Essential (primary) hypertension; J44.9 Chronic obstructive pulmonary disease, unspecified; E78.00 Pure hypercholesterolemia, unspecified; F17.210 Nicotine dependence, cigarettes, uncomplicated; Z79.899 Other long term (current) drug therapy | CPT/HCPCS: 36415; 85018; 99282; 99283 ==

== ENCOUNTER 2022-06-20 05:19 | Emergency (ER) | payer MEDICARE, OTHER ==
[2022-06-20] MEDS ORDERED: Sodium Chloride 0.9% 10 ML Syringe FLUSH PRN (05:55)
[2022-06-20] MEDS ORDERED: Albuterol/Ipratropium 3.0-0.5 MG/3 ML Neb Soln NEB ONE ×2 (05:56→06:42)
[2022-06-20] MEDS ORDERED: Magnesium Sulfate/Water 2 GM in Premix Bag 1 BAG IV ONE (05:57)
[2022-06-20] MEDS ORDERED: methylPREDNISolone Sodium Succinate 125 MG/2 ML SDV IVPUSH ONE (05:57)
== END 2022-06-20 07:30 | disposition home or self-care (01) ==
LOC: JD.ED 05:19
DX: J44.1 Chronic obstructive pulmonary disease with (acute) exacerbation (principal); E78.00 Pure hypercholesterolemia, unspecified; I10 Essential (primary) hypertension; Z88.8 Allergy status to other drugs, medicaments and biological substances; Z79.899 Other long term (current) drug therapy; Z20.822 Contact with and (suspected) exposure to COVID-19
CPT/HCPCS: 36415; 71045; 80053; 83605; 85025; 94640; 96365; 96366; 99284; J2930; J3475; J3490; U0002; J7620-GY

== ENCOUNTER 2022-06-28 11:58 | Emergency (ER) | payer MEDICARE, OTHER ==
[2022-06-28] MEDS ORDERED: Albuterol/Ipratropium 3.0-0.5 MG/3 ML Neb Soln ONE (13:04)
[2022-06-28] MEDS ORDERED: Albuterol/Ipratropium 3.0-0.5 MG/3 ML Neb Soln NEB ONE (13:04)
[2022-06-28] MEDS ORDERED: methylPREDNISolone Sodium Succinate 125 MG/2 ML SDV IVPUSH ONE (13:27)
== END 2022-06-28 15:25 | disposition home or self-care (01) ==
LOC: JD.ED 11:58
DX: J44.1 Chronic obstructive pulmonary disease with (acute) exacerbation (principal); I10 Essential (primary) hypertension; F17.210 Nicotine dependence, cigarettes, uncomplicated; Z88.8 Allergy status to other drugs, medicaments and biological substances; Z79.899 Other long term (current) drug therapy; Z20.822 Contact with and (suspected) exposure to COVID-19
CPT/HCPCS: 36415; 36600; 71045; 80053; 82803; 83605; 83880; 84484; 85025; 85610; 85730; 87040; 93005; 94640; 96374; 99285; J2930; U0002; J7620-GY

== ENCOUNTER 2022-07-06 05:06 | Emergency (ER) | payer MEDICARE, OTHER ==
[2022-07-06] MEDS ORDERED: Albuterol/Ipratropium 3.0-0.5 MG/3 ML Neb Soln NEB ONE ×3 (05:29→06:49)
[2022-07-06] MEDS ORDERED: methylPREDNISolone Sodium Succinate 125 MG/2 ML SDV IVPUSH ONE (05:29)
[2022-07-06 06:48] LABS: ESTIMATED GFR 81 mL/min (>60)
== END 2022-07-06 08:15 | disposition home or self-care (01) ==
LOC: JD.ED 05:06
DX: J44.1 Chronic obstructive pulmonary disease with (acute) exacerbation (principal); E78.00 Pure hypercholesterolemia, unspecified; I10 Essential (primary) hypertension; F17.210 Nicotine dependence, cigarettes, uncomplicated; Z88.8 Allergy status to other drugs, medicaments and biological substances; Z79.899 Other long term (current) drug therapy
CPT/HCPCS: 36415; 71045; 80053; 85025; 93005; 94640; 96374; 99285; J2930; 93010; 99284; J7620-GY

== ENCOUNTER 2022-08-15 16:40 | Emergency (ER) | payer MEDICARE, OTHER ==
[2022-08-15] MEDS ORDERED: Oxymetazoline 0.05% Nasal Spray 30 ML Bottle NAS ONE (17:19)
== END 2022-08-15 19:15 | disposition home or self-care (01) ==
LOC: JD.ED 16:40
DX: R04.0 Epistaxis (principal); E78.00 Pure hypercholesterolemia, unspecified; I10 Essential (primary) hypertension; J44.9 Chronic obstructive pulmonary disease, unspecified; M19.90 Unspecified osteoarthritis, unspecified site; F17.210 Nicotine dependence, cigarettes, uncomplicated; Z88.8 Allergy status to other drugs, medicaments and biological substances; Z79.899 Other long term (current) drug therapy
CPT/HCPCS: 30903; 99283; A9270; C9046; 99282

== ENCOUNTER 2022-08-20 19:11 | Emergency (ER) | payer MEDICARE, OTHER ==
[2022-08-20] MEDS ORDERED: Lidocaine 1% with EPINEPHrine 1:100,000 10 ML MDV INJECT ONE (20:55)
[2022-08-20] MEDS ORDERED: Oxymetazoline 0.05% Nasal Spray 30 ML Bottle NAS ONE (20:55)
[2022-08-20] MEDS ORDERED: Tranexamic Acid 1,000 MG in Sodium Chloride 0.9% 100 ML IV SCH (21:00)
[2022-08-20] MEDS ORDERED: Lidocaine 1% with EPINEPHrine 1:100,000 20 ML MDV INJECT ONE (21:09)
[2022-08-20] MEDS ORDERED: Benzocaine 20% Topical Spray UD MUCMEM ONE ×2 (21:57→22:30)
[2022-08-20] MEDS ORDERED: Benzocaine 20% Topical Spray UD ONE (22:41)
== END 2022-08-20 23:25 | disposition home or self-care (01) ==
LOC: JD.ED 19:11
DX: R04.0 Epistaxis (principal); J44.9 Chronic obstructive pulmonary disease, unspecified; E78.00 Pure hypercholesterolemia, unspecified; I10 Essential (primary) hypertension; F17.210 Nicotine dependence, cigarettes, uncomplicated; Z88.8 Allergy status to other drugs, medicaments and biological substances; Z79.899 Other long term (current) drug therapy
CPT/HCPCS: 30903; 36415; 85027; 96374; 99283; A9270; 99284

== ENCOUNTER 2022-08-21 05:24 | Emergency (ER) | payer MEDICARE, OTHER ==
[2022-08-21 06:32] LABS: ESTIMATED GFR 95 mL/min (>60)
== END 2022-08-21 07:28 | disposition home or self-care (01) ==
LOC: JD.ED 05:24
DX: R04.0 Epistaxis (principal); J44.9 Chronic obstructive pulmonary disease, unspecified; E78.00 Pure hypercholesterolemia, unspecified; I10 Essential (primary) hypertension; Z88.8 Allergy status to other drugs, medicaments and biological substances; Z79.899 Other long term (current) drug therapy
CPT/HCPCS: 36415; 80053; 85025; 99283

== ENCOUNTER 2022-09-30 15:16 | Emergency (ER) | payer MEDICARE, OTHER ==
[2022-09-30] MEDS ORDERED: diphenhydrAMINE 50 MG/ML SDV IVPUSH PRN (18:01)
[2022-09-30] MEDS ORDERED: Famotidine 20 MG/2 ML SDV IVPUSH PRN (18:01)
[2022-09-30] MEDS ORDERED: methylPREDNISolone Sodium Succinate 125 MG/2 ML SDV IVPUSH PRN (18:01)
[2022-09-30] MEDS ORDERED: EPINEPHrine 1 MG/ML SDV IM PRN (18:01)
[2022-09-30] MEDS ORDERED: Dexamethasone 10 MG/ML SDV IVPUSH ONE (18:04)
[2022-09-30] MEDS ORDERED: Sodium Chloride 0.9% 10 ML Syringe FLUSH SCH (18:15)
[2022-09-30] MEDS ORDERED: Albuterol 6.7 GM Inhaler INH SCH (21:00)
== END 2022-09-30 20:11 | disposition home or self-care (01) ==
LOC: JD.ED 15:16
DX: U07.1 COVID-19 (principal); J96.11 Chronic respiratory failure with hypoxia; J44.9 Chronic obstructive pulmonary disease, unspecified; R79.89 Other specified abnormal findings of blood chemistry; E78.00 Pure hypercholesterolemia, unspecified; I10 Essential (primary) hypertension; Z88.8 Allergy status to other drugs, medicaments and biological substances; Z79.899 Other long term (current) drug therapy
CPT/HCPCS: 36415; 80053; 82553; 83735; 83880; 84484; 85025; 96374; 99283; J1100; M0222; Q0222

== ENCOUNTER 2022-12-19 10:36 | Emergency (ER) | payer MEDICARE, OTHER ==
[2022-12-19] MEDS ORDERED: Sodium Chloride 0.9% 10 ML Syringe FLUSH PRN (10:56)
[2022-12-19] MEDS ORDERED: Albuterol/Ipratropium 3.0-0.5 MG/3 ML Neb Soln NEB ONE (11:00)
[2022-12-19] MEDS ORDERED: Nitroglycerin 2% Oint 1 GM UD Packet TOP ONE (11:22)
[2022-12-19] MEDS ORDERED: Aspirin 81 MG Tab.Chew PO ONE (11:22)
[2022-12-19] MEDS ORDERED: Morphine 2 MG/ML SYRINGE IVPUSH ONE (11:23)
[2022-12-19 11:50] LABS: CORONAVIRUS COVID-19 NAA NEGATIVE (NEGATIVE)
== END 2022-12-19 14:17 | disposition home or self-care (01) ==
LOC: JD.ED 10:36
DX: R07.89 Other chest pain (principal); E78.00 Pure hypercholesterolemia, unspecified; I10 Essential (primary) hypertension; J44.9 Chronic obstructive pulmonary disease, unspecified; M19.90 Unspecified osteoarthritis, unspecified site; Z88.8 Allergy status to other drugs, medicaments and biological substances; Z79.899 Other long term (current) drug therapy; Z72.0 Tobacco use; Z20.822 Contact with and (suspected) exposure to COVID-19
CPT/HCPCS: 0241U; 36415; 71045; 80053; 83880; 84484; 85025; 85379; 86140; 93005; 94640; 96374; 99285; A9270; J2270; J3490; J7620-GY

== ENCOUNTER 2023-07-27 23:47 | Emergency (ER) | payer MEDICARE, OTHER ==
[2023-07-28] MEDS ORDERED: Albuterol/Ipratropium 3.0-0.5 MG/3 ML Neb Soln NEB ONE ×2 (00:54→06:34)
[2023-07-28] MEDS ORDERED: Morphine 2 MG/ML SYRINGE IVPUSH ONE ×3 (00:55→06:34)
[2023-07-28 01:07] LABS: BASOPHILS ABSOLUTE AUTO 0.1 K/mm3 (0.0-0.2); BASOPHILS PERCENT AUTO 0.3 % (0.0-1.0); EOSINOPHILS ABSOLUTE AUTO 0.1 K/mm3 (0.0-0.4); EOSINOPHILS PERCENT AUTO 0.5 % (0.0-6.0); HEMATOCRIT 40.8 % (37.0-47.0); HEMOGLOBIN 13.2 gm/dl (12.0-16.0); IMMATURE GRAN ABSOLUTE AUTO 0.12 K/mm3 (0.00-0.05); IMMATURE GRAN PERCENT AUTO 0.6 % (0.0-0.4); LYMPHOCYTES ABSOLUTE AUTO 0.8 K/mm3 (1.0-4.8); LYMPHOCYTES PERCENT AUTO 4.2 % (24.0-44.0); MEAN CORPUSCULAR HEMOGLOBIN 29.7 pg (28.0-32.0); MEAN CORPUSCULAR HGB CONC 32.4 g/dl (32.0-36.0); MEAN CORPUSCULAR VOLUME 91.9 fl (83.0-99.0); MEAN PLATELET VOLUME 10.1 fl (9.4-12.3); MONOCYTES PERCENT AUTO 5.4 % (0.0-8.0); NEUTROPHILS ABSOLUTE AUTO 17.1 K/mm3 (1.8-7.7); PLATELET COUNT,PLT 347 K/mm3 (150-400); RED BLOOD CELL COUNT 4.44 M/mm3 (4.10-5.30); WHITE BLOOD CELL COUNT,WBC 19.22 K/mm3 (3.9-11.3)
[2023-07-28 01:47] LABS: A/G RATIO 0.7 (1-2); ALBUMIN 3.2 g/dl (3.4-5.0); ANION GAP 11.5 (5-15); BILIRUBIN TOTAL 1.3 mg/dL (0.2-1.0); CALCIUM 9.7 mg/dL (8.5-10.1); CREATININE 0.6 mg/dL (0.55-1.02); EST CRCL DRUG DOSING (CG) 77.49 mL/min; POTASSIUM,K 4.5 mEq/L (3.5-5.1); PROTEIN TOTAL,TP 7.5 g/dl (6.4-8.2)
[2023-07-28 02:35] LABS: APPEARANCE,URINE CLOUDY (Clear); BILIRUBIN,URINE 1+ (Negative); COLOR,URINE DARK YELLOW (Yellow); GLUCOSE,URINE NEGATIVE (Negative); KETONES,URINE TRACE (Negative); LEUKOCYTE ESTERASE,URINE 2+ (Negative); NITRITE,URINE POSITIVE (Negative); OCCULT BLOOD,URINE 3+ (Negative); PROTEIN,URINE 2+ (Negative)
[2023-07-28 03:21] LABS: BACTERIA,URINE MANY /hpf (FEW); EPITHELIAL CELLS,URINE 0-5 /hpf (0-5); MUCUS,URINE RARE /hpf (FEW); RBC,URINE >100 /hpf (0-5)
[2023-07-28] MEDS ORDERED: cefTRIAXone 1 GM in Sodium Chloride 0.9% 100 ML IV ONE (03:26)
[2023-07-28 04:00] LABS: LACTIC ACID 0.7 mmol/L (0.4-2.0)
[2023-07-28] MEDS ORDERED: Sodium Chloride 0.9% 1,000 ML IV SCH (06:30)
== END 2023-07-28 10:10 ==
LOC: JD.ED 23:47
DX: N13.30 Unspecified hydronephrosis (principal); N39.0 Urinary tract infection, site not specified; R74.02 Elevation of levels of lactic acid dehydrogenase [LDH]; R74.01 Elevation of levels of liver transaminase levels; J44.9 Chronic obstructive pulmonary disease, unspecified; E78.00 Pure hypercholesterolemia, unspecified; I10 Essential (primary) hypertension; F17.210 Nicotine dependence, cigarettes, uncomplicated; Z88.8 Allergy status to other drugs, medicaments and biological substances; Z79.899 Other long term (current) drug therapy
CPT/HCPCS: 36415; 74176; 80053; 81001; 82977; 83605; 83690; 85025; 87040; 87086; 87088; 87186; 94640; 96374; 96375; 96376; 99285; J0696; J2270; J3490; J7030; J7620-GY

== ENCOUNTER 2023-09-14 16:38 | Emergency (ER) | payer MEDICARE, OTHER | END 2023-09-14 18:44 | disposition home or self-care (01) | LOC: JD.ED 16:38 | DX: M25.511 Pain in right shoulder (principal); E78.00 Pure hypercholesterolemia, unspecified; I10 Essential (primary) hypertension; J44.9 Chronic obstructive pulmonary disease, unspecified; F17.210 Nicotine dependence, cigarettes, uncomplicated; Z88.8 Allergy status to other drugs, medicaments and biological substances; Z79.899 Other long term (current) drug therapy; X50.0XXA Overexertion from strenuous movement or load, initial encounter | CPT/HCPCS: 73030-26-RT; 73030-RT; 99283 ==

== ENCOUNTER 2023-09-22 17:28 | Inpatient (IN) | payer MEDICARE, OTHER ==
[2023-09-22] MEDS ORDERED: Diltiazem 25 MG/5 ML SDV IVPUSH ONE (18:17)
[2023-09-22] MEDS ORDERED: Sodium Chloride 0.9% 500 ML IV ONE (18:18)
[2023-09-22] MEDS ORDERED: Diltiazem 125 MG in Sodium Chloride 0.9% 100 ML IV SCH ×2 (18:45→19:15)
[2023-09-22] MEDS ORDERED: Albuterol/Ipratropium 3.0-0.5 MG/3 ML Neb Soln NEB ONE (18:55)
[2023-09-22] MEDS ORDERED: Ondansetron 4 MG Tab.DIS PO PRN (18:59)
[2023-09-22] MEDS ORDERED: Acetaminophen 325 MG Tab PO PRN (18:59)
[2023-09-22] MEDS ORDERED: Ondansetron 4 MG/2 ML SDV IV PRN (18:59)
[2023-09-22] MEDS ORDERED: Non-Formulary Medication 1 Each (Hydrocodone/Acetaminophen 1 EACH Tablet) PO PRN (19:04)
[2023-09-22 19:07] LABS: BASOPHILS PERCENT AUTO 0.2 % (0.0-1.0); EOSINOPHILS ABSOLUTE AUTO 0.1 K/mm3 (0.0-0.4); EOSINOPHILS PERCENT AUTO 0.3 % (0.0-6.0); HEMATOCRIT 35.7 % (37.0-47.0); HEMOGLOBIN 11.7 gm/dl (12.0-16.0); IMMATURE GRAN ABSOLUTE AUTO 0.12 K/mm3 (0.00-0.05); IMMATURE GRAN PERCENT AUTO 0.7 % (0.0-0.4); LYMPHOCYTES ABSOLUTE AUTO 0.7 K/mm3 (1.0-4.8); LYMPHOCYTES PERCENT AUTO 4.2 % (24.0-44.0); MEAN CORPUSCULAR HEMOGLOBIN 29.1 pg (28.0-32.0); MEAN CORPUSCULAR HGB CONC 32.8 g/dl (32.0-36.0); MEAN CORPUSCULAR VOLUME 88.8 fl (83.0-99.0); MEAN PLATELET VOLUME 9.5 fl (9.4-12.3); MONOCYTES PERCENT AUTO 6.1 % (0.0-8.0); NEUTROPHILS ABSOLUTE AUTO 14.6 K/mm3 (1.8-7.7); NEUTROPHILS PERCENT AUTO 88.5 % (41.0-71.0); PLATELET COUNT,PLT 381 K/mm3 (150-400); RED BLOOD CELL COUNT 4.02 M/mm3 (4.10-5.30); WHITE BLOOD CELL COUNT,WBC 16.51 K/mm3 (3.9-11.3)
[2023-09-22] MEDS ORDERED: Acetaminophen/HYDROcodone 325-5 MG Tab PO PRN (19:15)
[2023-09-22] MEDS ORDERED: Heparin Sodium/D5W 25,000 UNITS/500 ML BAG IV SCH (19:15)
[2023-09-22] MEDS: methylPREDNISolone Sodium Succinate 40 MG/1 ML SDV IVPUSH SCH (19:27)
[2023-09-22 19:31] LABS: A/G RATIO 0.6 (1-2); ALBUMIN 2.5 g/dl (3.4-5.0); ANION GAP 15.9 (5-15); BILIRUBIN TOTAL 0.7 mg/dL (0.2-1.0); BUN/CREATININE RATIO 16.7 (14-18); CALCIUM 8.8 mg/dL (8.5-10.1); CREATININE 0.6 mg/dL (0.55-1.02); EST CRCL DRUG DOSING (CG) 77.49 mL/min; POTASSIUM,K 3.9 mEq/L (3.5-5.1)
[2023-09-22] MEDS: Albuterol/Ipratropium 3.0-0.5 MG/3 ML Neb Soln NEB SCH ×2 (22:12)
[2023-09-22] MEDS ORDERED: Albuterol 0.083% 2.5 MG/3 ML Neb Soln NEB PRN (22:40)
[2023-09-23] MEDS: methylPREDNISolone Sodium Succinate 40 MG/1 ML SDV IVPUSH SCH ×2 (00:59→06:33)
[2023-09-23] MEDS: Diltiazem IR 30 MG Tab PO SCH ×3 (00:59→07:28)
[2023-09-23] MEDS: Albuterol/Ipratropium 3.0-0.5 MG/3 ML Neb Soln NEB SCH ×2 (02:58→06:37)
[2023-09-23] MEDS ORDERED: Heparin Sodium 5,000 Units/ML Vial IVPUSH ONE (06:19)
[2023-09-23] MEDS ORDERED: Albuterol/Ipratropium 3.0-0.5 MG/3 ML Neb Soln NEB SCH (10:00)
[2023-09-23] MEDS ORDERED: atorvaSTATin 20 MG Tab PO SCH (12:00)
== END 2023-09-23 10:13 | DRG 280 ==
LOC: JD.ED 17:28 → JD.ICU 18:59 → JD.ED 21:53
PROVIDERS: ADMIT Hospitalist; ATTEND Hospitalist
DX: I48.91 Unspecified atrial fibrillation (principal); I21.A1 Myocardial infarction type 2; J96.21 Acute and chronic respiratory failure with hypoxia; C34.90 Malignant neoplasm of unspecified part of unspecified bronchus or lung; J44.1 Chronic obstructive pulmonary disease with (acute) exacerbation; I25.10 Atherosclerotic heart disease of native coronary artery without angina pectoris; F17.210 Nicotine dependence, cigarettes, uncomplicated; E78.00 Pure hypercholesterolemia, unspecified; M19.90 Unspecified osteoarthritis, unspecified site; I10 Essential (primary) hypertension; Z87.01 Personal history of pneumonia (recurrent); Z87.442 Personal history of urinary calculi; Z98.51 Tubal ligation status; Z88.8 Allergy status to other drugs, medicaments and biological substances; Z79.899 Other long term (current) drug therapy; Z79.51 Long term (current) use of inhaled steroids; Z93.6 Other artificial openings of urinary tract status; Z98.890 Other specified postprocedural states; Z56.0 Unemployment, unspecified; Z99.81 Dependence on supplemental oxygen
CPT/HCPCS: 36415; 71045; 71045-26; 80053; 84484; 85025; 85730; 93005; 93010; 94640; 94667; 94762; 96374; 96376; 99285; 99285-25; A9270-GY; J1644; J2920; J3490; J7030; J7620-GY

== ENCOUNTER 2023-10-04 17:18 | Inpatient (IN) | payer MEDICARE, OTHER ==
[2023-10-04] MEDS ORDERED: Sodium Chloride 0.9% 10 ML Syringe FLUSH PRN (17:56)
[2023-10-04] MEDS ORDERED: methylPREDNISolone Sodium Succinate 125 MG/2 ML SDV IVPUSH ONE (17:56)
[2023-10-04] MEDS ORDERED: Levalbuterol HCl 1.25 MG/0.5 ML Neb NEB ONE ×2 (17:57→19:04)
[2023-10-04] MEDS ORDERED: guaiFENesin 600 MG Tab.ER PO ONE (18:02)
[2023-10-04 18:45] LABS: BASOPHILS PERCENT AUTO 0.2 % (0.0-1.0); EOSINOPHILS ABSOLUTE AUTO 0.1 K/mm3 (0.0-0.4); EOSINOPHILS PERCENT AUTO 0.5 % (0.0-6.0); HEMATOCRIT 35.6 % (37.0-47.0); HEMOGLOBIN 11.8 gm/dl (12.0-16.0); IMMATURE GRAN ABSOLUTE AUTO 0.13 K/mm3 (0.00-0.05); IMMATURE GRAN PERCENT AUTO 0.7 % (0.0-0.4); LYMPHOCYTES ABSOLUTE AUTO 0.8 K/mm3 (1.0-4.8); LYMPHOCYTES PERCENT AUTO 4.4 % (24.0-44.0); MEAN CORPUSCULAR HEMOGLOBIN 28.6 pg (28.0-32.0); MEAN CORPUSCULAR HGB CONC 33.1 g/dl (32.0-36.0); MEAN CORPUSCULAR VOLUME 86.2 fl (83.0-99.0); MEAN PLATELET VOLUME 10.1 fl (9.4-12.3); MONOCYTES ABSOLUTE AUTO 0.7 K/mm3 (0.0-0.8); NEUTROPHILS ABSOLUTE AUTO 16.5 K/mm3 (1.8-7.7); NEUTROPHILS PERCENT AUTO 90.2 % (41.0-71.0); PLATELET COUNT,PLT 362 K/mm3 (150-400); RED BLOOD CELL COUNT 4.13 M/mm3 (4.10-5.30); WHITE BLOOD CELL COUNT,WBC 18.31 K/mm3 (3.9-11.3)
[2023-10-04 19:16] LABS: A/G RATIO 0.6 (1-2); ALBUMIN 2.6 g/dl (3.4-5.0); ANION GAP 13.1 (5-15); BILIRUBIN TOTAL 0.6 mg/dL (0.2-1.0); C-REACTIVE PROTEIN 9.7 mg/dL (<1.0); CALCIUM 8.9 mg/dL (8.5-10.1); CREATININE 0.5 mg/dL (0.55-1.02); EST CRCL DRUG DOSING (CG) 92.99 mL/min; POTASSIUM,K 4.1 mEq/L (3.5-5.1); PROTEIN TOTAL,TP 6.8 g/dl (6.4-8.2)
[2023-10-04 19:59] LABS: LACTIC ACID 0.6 mmol/L (0.4-2.0)
[2023-10-04] MEDS ORDERED: Ondansetron 4 MG Tab.DIS PO PRN (20:29)
[2023-10-04] MEDS ORDERED: Docusate Sodium 100 MG Cap PO PRN (20:29)
[2023-10-04] MEDS ORDERED: Temazepam 7.5 MG Cap PO PRN (20:29)
[2023-10-04] MEDS ORDERED: Acetaminophen 325 MG Tab PO PRN (20:29)
[2023-10-04] MEDS ORDERED: Sennosides/Docusate Sodium 50-8.6 MG Tab PO PRN (20:29)
[2023-10-04] MEDS ORDERED: Albuterol 0.083% 2.5 MG/3 ML Neb Soln NEB PRN (20:29)
[2023-10-04] MEDS ORDERED: oxyCODONE 5 MG Tab PO PRN (20:29)
[2023-10-04] MEDS ORDERED: Piperacillin/Tazobactam 4.5 GM in Sodium Chloride 0.9% 100 ML IV ONE (20:38)
[2023-10-04 20:58] LABS: APPEARANCE,URINE CLEAR (Clear); BILIRUBIN,URINE NEGATIVE (Negative); COLOR,URINE YELLOW (Yellow); GLUCOSE,URINE NEGATIVE (Negative); KETONES,URINE NEGATIVE (Negative); LEUKOCYTE ESTERASE,URINE 2+ (Negative); NITRITE,URINE NEGATIVE (Negative); OCCULT BLOOD,URINE NEGATIVE (Negative); PROTEIN,URINE 1+ (Negative); UROBILINOGEN,URINE 0.2 (0.2-1.0)
[2023-10-04] MEDS ORDERED: Heparin Sodium 5,000 Units/ML Vial SUBCUT SCH (21:00)
[2023-10-04] MEDS ORDERED: guaiFENesin 600 MG Tab.ER PO SCH (21:00)
[2023-10-04 21:10] LABS: BACTERIA,URINE FEW /hpf (FEW); MUCUS,URINE FEW /hpf (FEW); RBC,URINE 0-5 /hpf (0-5); SQUAMOUS EPITHELIAL CELLS,UR 0-5 /hpf (0-5)
[2023-10-04] MEDS: Albuterol/Ipratropium 3.0-0.5 MG/3 ML Neb Soln NEB SCH (21:51)
[2023-10-04] MEDS ORDERED: Levalbuterol HCl 1.25 MG/3 ML Neb NEB PRN (22:58)
[2023-10-04] MEDS: Apixaban 5 MG Tab PO SCH (23:20)
[2023-10-04] MEDS: Codeine/guaiFENesin 10-100 MG/5 ML Syrup 5 ML Cup PO PRN (23:20)
[2023-10-04] MEDS: Metoprolol Tartrate 50 MG Tab PO SCH (23:20)
[2023-10-05] MEDS ORDERED: Piperacillin/Tazobactam 3.375 GM in Sodium Chloride 0.9% 100 ML IV SCH ×2 (01:00→05:00)
[2023-10-05] MEDS ORDERED: methylPREDNISolone Sodium Succinate 125 MG/2 ML SDV IVPUSH SCH (02:00)
[2023-10-05] MEDS: Albuterol/Ipratropium 3.0-0.5 MG/3 ML Neb Soln NEB SCH ×5 (02:49→20:30)
[2023-10-05] MEDS: Codeine/guaiFENesin 10-100 MG/5 ML Syrup 5 ML Cup PO PRN (03:16)
[2023-10-05 06:24] LABS: BASOPHILS PERCENT AUTO 0.2 % (0.0-1.0); EOSINOPHILS PERCENT AUTO 0.1 % (0.0-6.0); HEMATOCRIT 32.8 % (37.0-47.0); HEMOGLOBIN 10.7 gm/dl (12.0-16.0); IMMATURE GRAN ABSOLUTE AUTO 0.08 K/mm3 (0.00-0.05); IMMATURE GRAN PERCENT AUTO 0.8 % (0.0-0.4); LYMPHOCYTES ABSOLUTE AUTO 0.4 K/mm3 (1.0-4.8); LYMPHOCYTES PERCENT AUTO 4.1 % (24.0-44.0); MEAN CORPUSCULAR HEMOGLOBIN 28.1 pg (28.0-32.0); MEAN CORPUSCULAR HGB CONC 32.6 g/dl (32.0-36.0); MEAN CORPUSCULAR VOLUME 86.1 fl (83.0-99.0); MEAN PLATELET VOLUME 10.9 fl (9.4-12.3); MONOCYTES ABSOLUTE AUTO 0.1 K/mm3 (0.0-0.8); MONOCYTES PERCENT AUTO 1.3 % (0.0-8.0); NEUTROPHILS ABSOLUTE AUTO 9.5 K/mm3 (1.8-7.7); NEUTROPHILS PERCENT AUTO 93.5 % (41.0-71.0); PLATELET COUNT,PLT 344 K/mm3 (150-400); RED BLOOD CELL COUNT 3.81 M/mm3 (4.10-5.30); WHITE BLOOD CELL COUNT,WBC 10.14 K/mm3 (3.9-11.3)
[2023-10-05 08:17] LABS: SLIDE REVIEW ABNORMAL SMEAR
[2023-10-05] MEDS ORDERED: BREZTRI INH SCH (09:00)
[2023-10-05] MEDS: Apixaban 5 MG Tab PO SCH ×2 (09:45→20:20)
[2023-10-05] MEDS: Metoprolol Tartrate 50 MG Tab PO SCH ×2 (09:45→20:21)
[2023-10-05] MEDS: Magnesium Oxide 400 MG Tab PO SCH ×2 (09:47→20:20)
[2023-10-05] MEDS ORDERED: Piperacillin/Tazobactam 4.5 GM in Sodium Chloride 0.9% 100 ML IV SCH (13:00)
[2023-10-05] MEDS: guaiFENesin/Dextromethorphan 100-10 MG/5 ML Soln 5 ML Cup PO SCH ×2 (14:38→20:22)
[2023-10-05] MEDS: Amoxicillin/Clavulanate K 875-125 MG Tab PO SCH (20:20)
[2023-10-05] MEDS: BREZTRI INH SCH (20:32)
[2023-10-05] MEDS ORDERED: atorvaSTATin 20 MG Tab PO SCH (21:00)
[2023-10-06] MEDS ORDERED: guaiFENesin 100 MG/5 ML Soln 10 ML UD Cup PO PRN (04:21)
[2023-10-06 05:34] LABS: BASOPHILS ABSOLUTE AUTO 0.1 K/mm3 (0.0-0.2); BASOPHILS PERCENT AUTO 0.3 % (0.0-1.0); EOSINOPHILS PERCENT AUTO 0.2 % (0.0-6.0); HEMOGLOBIN 10.2 gm/dl (12.0-16.0); IMMATURE GRAN ABSOLUTE AUTO 0.17 K/mm3 (0.00-0.05); IMMATURE GRAN PERCENT AUTO 1.1 % (0.0-0.4); LYMPHOCYTES ABSOLUTE AUTO 1.4 K/mm3 (1.0-4.8); MEAN CORPUSCULAR HEMOGLOBIN 28.2 pg (28.0-32.0); MEAN CORPUSCULAR HGB CONC 31.9 g/dl (32.0-36.0); MEAN CORPUSCULAR VOLUME 88.4 fl (83.0-99.0); MEAN PLATELET VOLUME 10.7 fl (9.4-12.3); MONOCYTES ABSOLUTE AUTO 0.8 K/mm3 (0.0-0.8); MONOCYTES PERCENT AUTO 5.3 % (0.0-8.0); NEUTROPHILS ABSOLUTE AUTO 13.3 K/mm3 (1.8-7.7); NEUTROPHILS PERCENT AUTO 84.1 % (41.0-71.0); PLATELET COUNT,PLT 352 K/mm3 (150-400); RED BLOOD CELL COUNT 3.62 M/mm3 (4.10-5.30); WHITE BLOOD CELL COUNT,WBC 15.79 K/mm3 (3.9-11.3)
[2023-10-06] MEDS: BREZTRI INH SCH (05:36)
[2023-10-06] MEDS: Albuterol/Ipratropium 3.0-0.5 MG/3 ML Neb Soln NEB SCH (05:36)
[2023-10-06 05:57] LABS: ANION GAP 11.2 (5-15); BUN/CREATININE RATIO 18.3 (14-18); C-REACTIVE PROTEIN 2.8 mg/dL (<1.0); CALCIUM 9.2 mg/dL (8.5-10.1); CREATININE 0.6 mg/dL (0.55-1.02); EST CRCL DRUG DOSING (CG) 77.49 mL/min; POTASSIUM,K 5.2 mEq/L (3.5-5.1)
[2023-10-06] MEDS: guaiFENesin/Dextromethorphan 100-10 MG/5 ML Soln 5 ML Cup PO SCH (06:33)
[2023-10-06] MEDS ORDERED: predniSONE 20 MG Tab PO SCH (07:00)
[2023-10-06] MEDS: Apixaban 5 MG Tab PO SCH (08:16)
[2023-10-06] MEDS: Amoxicillin/Clavulanate K 875-125 MG Tab PO SCH (08:16)
[2023-10-06] MEDS: Metoprolol Tartrate 50 MG Tab PO SCH (08:16)
[2023-10-06] MEDS: Magnesium Oxide 400 MG Tab PO SCH (08:17)
== END 2023-10-06 08:45 | disposition home health service (06) | DRG 189 ==
LOC: JD.ED 17:18 → JD.ICU 20:29
PROVIDERS: ADMIT Hospitalist; ATTEND Pediatrics
DX: J96.21 Acute and chronic respiratory failure with hypoxia (principal); J44.1 Chronic obstructive pulmonary disease with (acute) exacerbation; I50.20 Unspecified systolic (congestive) heart failure; E87.1 Hypo-osmolality and hyponatremia; C34.92 Malignant neoplasm of unspecified part of left bronchus or lung; I51.81 Takotsubo syndrome; F17.210 Nicotine dependence, cigarettes, uncomplicated; I95.0 Idiopathic hypotension; I48.0 Paroxysmal atrial fibrillation; I11.0 Hypertensive heart disease with heart failure; E78.00 Pure hypercholesterolemia, unspecified; N13.5 Crossing vessel and stricture of ureter without hydronephrosis; Z79.01 Long term (current) use of anticoagulants; Z79.899 Other long term (current) drug therapy; Z98.890 Other specified postprocedural states; Z99.81 Dependence on supplemental oxygen; Z93.6 Other artificial openings of urinary tract status; I25.2 Old myocardial infarction; Z87.01 Personal history of pneumonia (recurrent); Z98.51 Tubal ligation status
CPT/HCPCS: 36415; 71045; 71045-26; 80048; 80053; 81001; 83605; 83735; 85025; 86140; 87040; 94640; 94667; 94668; A9270-GY; J1644; J2543; J2930; J3490; J7512; J7612-GY; J7620-GY

== ENCOUNTER 2023-10-07 05:37 | Emergency (ER) | payer MEDICARE, OTHER ==
[2023-10-07] MEDS ORDERED: Lidocaine 1% 10 ML MDV ONE (05:52)
[2023-10-07] MEDS ORDERED: Lidocaine 1% 10 ML MDV INJECT ONE (05:53)
[2023-10-07 06:43] LABS: BASOPHILS PERCENT AUTO 0.2 % (0.0-1.0); HEMATOCRIT 36.3 % (37.0-47.0); HEMOGLOBIN 11.7 gm/dl (12.0-16.0); IMMATURE GRAN ABSOLUTE AUTO 0.27 K/mm3 (0.00-0.05); IMMATURE GRAN PERCENT AUTO 1.4 % (0.0-0.4); LYMPHOCYTES ABSOLUTE AUTO 0.7 K/mm3 (1.0-4.8); LYMPHOCYTES PERCENT AUTO 3.7 % (24.0-44.0); MEAN CORPUSCULAR HEMOGLOBIN 28.8 pg (28.0-32.0); MEAN CORPUSCULAR HGB CONC 32.2 g/dl (32.0-36.0); MEAN CORPUSCULAR VOLUME 89.4 fl (83.0-99.0); MEAN PLATELET VOLUME 9.3 fl (9.4-12.3); MONOCYTES ABSOLUTE AUTO 0.9 K/mm3 (0.0-0.8); MONOCYTES PERCENT AUTO 4.7 % (0.0-8.0); NEUTROPHILS ABSOLUTE AUTO 17.4 K/mm3 (1.8-7.7); PLATELET COUNT,PLT 400 K/mm3 (150-400); RED BLOOD CELL COUNT 4.06 M/mm3 (4.10-5.30)
[2023-10-07 07:13] LABS: A/G RATIO 0.7 (1-2); ALBUMIN 2.8 g/dl (3.4-5.0); ANION GAP 9.5 (5-15); BILIRUBIN TOTAL 0.5 mg/dL (0.2-1.0); CALCIUM 9.2 mg/dL (8.5-10.1); CREATININE 0.5 mg/dL (0.55-1.02); EST CRCL DRUG DOSING (CG) 92.99 mL/min; POTASSIUM,K 4.5 mEq/L (3.5-5.1); PROTEIN TOTAL,TP 6.7 g/dl (6.4-8.2)
[2023-10-07 08:13] LABS: APPEARANCE,URINE CLEAR (Clear); BILIRUBIN,URINE NEGATIVE (Negative); COLOR,URINE YELLOW (Yellow); GLUCOSE,URINE NEGATIVE (Negative); KETONES,URINE NEGATIVE (Negative); LEUKOCYTE ESTERASE,URINE NEGATIVE (Negative); NITRITE,URINE NEGATIVE (Negative); OCCULT BLOOD,URINE NEGATIVE (Negative); PROTEIN,URINE NEGATIVE (Negative); UROBILINOGEN,URINE 0.2 (0.2-1.0)
[2023-10-07 08:21] LABS: BARBITURATE SCREEN,URINE NEGATIVE (CUTOFF=200); BENZODIAZEPINES SCREEN,URINE PRESUMPTIVE POSITIVE (CUTOFF=150); BUPRENORPHINE SCREEN,URINE NEGATIVE (CUTOFF=10); METHADONE SCREEN, URINE NEGATIVE (CUTOFF=200); METHAMPHETAMINES SCREEN, URINE NEGATIVE (CUTOFF=500); OXYCODONE SCREEN,URINE NEGATIVE (CUT0FF=100); THC SCREEN,URINE 20 NG/ML NEGATIVE (CUTOFF=50)
[2023-10-07 08:26] LABS: AMPHETAMINES SCREEN, URINE NEGATIVE (CUTOFF=500)
== END 2023-10-07 09:11 | disposition home or self-care (01) ==
LOC: JD.ED 05:37
DX: S01.01XA Laceration without foreign body of scalp, initial encounter (principal); I10 Essential (primary) hypertension; I25.2 Old myocardial infarction; E78.00 Pure hypercholesterolemia, unspecified; J44.9 Chronic obstructive pulmonary disease, unspecified; F17.210 Nicotine dependence, cigarettes, uncomplicated; Z79.01 Long term (current) use of anticoagulants; Z79.899 Other long term (current) drug therapy; W01.198A Fall on same level from slipping, tripping and stumbling with subsequent striking against other object, initial encounter
CPT/HCPCS: 12002; 36415; 70450; 70450-26; 80053; 80306; 81003; 85025; 93005; 99283; 99284; J3490

== ENCOUNTER 2023-10-07 14:53 | Emergency (ER) | payer MEDICARE, OTHER ==
[2023-10-07] MEDS ORDERED: Albuterol/Ipratropium 3.0-0.5 MG/3 ML Neb Soln NEB ONE (16:12)
[2023-10-07] MEDS ORDERED: LORazepam 1 MG Tab PO ONE (16:19)
== END 2023-10-07 19:50 | disposition home or self-care (01) ==
LOC: JD.ED 14:53
DX: F41.9 Anxiety disorder, unspecified (principal); I10 Essential (primary) hypertension; J44.9 Chronic obstructive pulmonary disease, unspecified; I25.2 Old myocardial infarction; E78.00 Pure hypercholesterolemia, unspecified; Z88.8 Allergy status to other drugs, medicaments and biological substances; Z79.899 Other long term (current) drug therapy; Z87.891 Personal history of nicotine dependence
CPT/HCPCS: 36415; 71046; 83605; 86140; 94640; 99285; A9270; 99283; J7620-GY

== ENCOUNTER 2023-10-08 12:06 | Emergency (ER) | payer MEDICARE, OTHER | END 2023-10-08 14:50 | disposition home or self-care (01) | LOC: JD.ED 12:06 | DX: T50.905A Adverse effect of unspecified drugs, medicaments and biological substances, initial encounter (principal); I10 Essential (primary) hypertension; E78.00 Pure hypercholesterolemia, unspecified; I25.2 Old myocardial infarction; J44.9 Chronic obstructive pulmonary disease, unspecified; Z87.891 Personal history of nicotine dependence; Z79.899 Other long term (current) drug therapy | CPT/HCPCS: 99283; 99284 ==

== ENCOUNTER 2023-10-10 07:53 | Emergency (ER) | payer MEDICARE, OTHER ==
[2023-10-10] MEDS ORDERED: Sodium Chloride 0.9% 10 ML Syringe FLUSH PRN (08:39)
[2023-10-10] MEDS ORDERED: methylPREDNISolone Sodium Succinate 125 MG/2 ML SDV IVPUSH ONE (08:39)
[2023-10-10 09:13] LABS: BASOPHILS PERCENT AUTO 0.1 % (0.0-1.0); EOSINOPHILS PERCENT AUTO 0.1 % (0.0-6.0); HEMOGLOBIN 12.1 gm/dl (12.0-16.0); IMMATURE GRAN ABSOLUTE AUTO 0.12 K/mm3 (0.00-0.05); IMMATURE GRAN PERCENT AUTO 0.7 % (0.0-0.4); LYMPHOCYTES ABSOLUTE AUTO 0.7 K/mm3 (1.0-4.8); LYMPHOCYTES PERCENT AUTO 3.9 % (24.0-44.0); MEAN CORPUSCULAR HEMOGLOBIN 28.4 pg (28.0-32.0); MEAN CORPUSCULAR HGB CONC 32.7 g/dl (32.0-36.0); MEAN CORPUSCULAR VOLUME 86.9 fl (83.0-99.0); MONOCYTES ABSOLUTE AUTO 0.9 K/mm3 (0.0-0.8); MONOCYTES PERCENT AUTO 5.2 % (0.0-8.0); NEUTROPHILS ABSOLUTE AUTO 15.9 K/mm3 (1.8-7.7); RED BLOOD CELL COUNT 4.26 M/mm3 (4.10-5.30); WHITE BLOOD CELL COUNT,WBC 17.63 K/mm3 (3.9-11.3)
[2023-10-10 09:25] LABS: PLATELET COUNT,PLT 292 K/mm3 (150-400)
[2023-10-10 09:38] LABS: A/G RATIO 0.7 (1-2); ALBUMIN 2.7 g/dl (3.4-5.0); ANION GAP 15.7 (5-15); BILIRUBIN TOTAL 0.9 mg/dL (0.2-1.0); BUN/CREATININE RATIO 24.2 (14-18); C-REACTIVE PROTEIN 9.9 mg/dL (<1.0); CALCIUM 9.2 mg/dL (8.5-10.1); CREATININE 1.2 mg/dL (0.55-1.02); EST CRCL DRUG DOSING (CG) 38.75 mL/min; MAGNESIUM 2.2 mg/dL (1.8-2.4); POTASSIUM,K 4.7 mEq/L (3.5-5.1); PROTEIN TOTAL,TP 6.5 g/dl (6.4-8.2)
[2023-10-10] MEDS ORDERED: Aspirin 81 MG Tab.Chew PO ONE (10:10)
[2023-10-10] MEDS ORDERED: atorvaSTATin 40 MG Tab PO ONE (10:11)
[2023-10-10] MEDS ORDERED: Heparin Sodium 5,000 Units/ML Vial IVPUSH ONE (10:12)
[2023-10-10] MEDS ORDERED: Heparin Sodium/D5W 25,000 UNITS/500 ML BAG IV SCH (10:15)
[2023-10-10 11:41] LABS: CORONAVIRUS COVID-19 NAA NEGATIVE (NEGATIVE); INFLUENZA A NAA NEGATIVE (NEGATIVE); RESPIRATORY SYNCYTIAL VIR NAA NEGATIVE (NEGATIVE)
== END 2023-10-10 12:10 ==
LOC: JD.ED 07:53
DX: I21.4 Non-ST elevation (NSTEMI) myocardial infarction (principal); C34.92 Malignant neoplasm of unspecified part of left bronchus or lung; I10 Essential (primary) hypertension; J44.9 Chronic obstructive pulmonary disease, unspecified; I25.2 Old myocardial infarction; E78.00 Pure hypercholesterolemia, unspecified; I48.91 Unspecified atrial fibrillation; Z87.891 Personal history of nicotine dependence; Z79.899 Other long term (current) drug therapy; Z79.01 Long term (current) use of anticoagulants; Z88.3 Allergy status to other anti-infective agents; Z88.8 Allergy status to other drugs, medicaments and biological substances
CPT/HCPCS: 0241U; 36415; 80053; 83735; 84484; 85025; 85730; 86140; 93005; 96365; 96366; 96375; 96376; 99285; A9270; J1644; J2930; J3490; 93010

== ENCOUNTER 2023-11-03 12:43 | Inpatient (IN) | payer MEDICARE, OTHER ==
[2023-11-03 13:53] LABS: BASOPHILS PERCENT AUTO 0.3 % (0.0-1.0); EOSINOPHILS ABSOLUTE AUTO 0.1 K/mm3 (0.0-0.4); EOSINOPHILS PERCENT AUTO 1.1 % (0.0-6.0); HEMATOCRIT 34.1 % (37.0-47.0); IMMATURE GRAN ABSOLUTE AUTO 0.17 K/mm3 (0.00-0.05); IMMATURE GRAN PERCENT AUTO 1.7 % (0.0-0.4); LYMPHOCYTES ABSOLUTE AUTO 0.8 K/mm3 (1.0-4.8); LYMPHOCYTES PERCENT AUTO 8.1 % (24.0-44.0); MEAN CORPUSCULAR HEMOGLOBIN 28.5 pg (28.0-32.0); MEAN CORPUSCULAR HGB CONC 32.3 g/dl (32.0-36.0); MEAN CORPUSCULAR VOLUME 88.3 fl (83.0-99.0); MEAN PLATELET VOLUME 9.8 fl (9.4-12.3); MONOCYTES ABSOLUTE AUTO 0.9 K/mm3 (0.0-0.8); MONOCYTES PERCENT AUTO 8.6 % (0.0-8.0); NEUTROPHILS PERCENT AUTO 80.2 % (41.0-71.0); RED BLOOD CELL COUNT 3.86 M/mm3 (4.10-5.30); WHITE BLOOD CELL COUNT,WBC 9.98 K/mm3 (3.9-11.3)
[2023-11-03 14:00] LABS: PLATELET COUNT,PLT 370 K/mm3 (150-400)
[2023-11-03] MEDS ORDERED: methylPREDNISolone Sodium Succinate 125 MG/2 ML SDV IVPUSH ONE (14:07)
[2023-11-03] MEDS ORDERED: Triamcinolone Acetonide 40 MG/ML 1 ML SDV IM ONE (14:08)
[2023-11-03 14:28] LABS: A/G RATIO 0.5 (1-2); ALBUMIN 2.1 g/dl (3.4-5.0); ANION GAP 11.1 (5-15); BILIRUBIN TOTAL 3.1 mg/dL (0.2-1.0); CALCIUM 9.2 mg/dL (8.5-10.1); CREATININE 0.5 mg/dL (0.55-1.02); EST CRCL DRUG DOSING (CG) 92.99 mL/min; POTASSIUM,K 4.1 mEq/L (3.5-5.1); PROTEIN TOTAL,TP 6.5 g/dl (6.4-8.2)
[2023-11-03] MEDS ORDERED: HYDROmorphone 1 MG/ML Syringe IVPUSH PRN (17:10)
[2023-11-03] MEDS ORDERED: Naloxone 0.4 MG/ML SDV IVPUSH PRN (17:10)
[2023-11-03] MEDS ORDERED: Ondansetron 4 MG Tab.DIS PO PRN (18:29)
[2023-11-03] MEDS ORDERED: HYDROmorphone 0.5 MG/0.5 ML Syringe IVPUSH PRN (18:29)
[2023-11-03] MEDS ORDERED: Temazepam 15 MG Cap PO PRN (18:29)
[2023-11-03] MEDS: Sodium Chloride 0.9% 1,000 ML IV SCH (18:52)
[2023-11-03] MEDS: Heparin Sodium 5,000 Units/ML Vial SUBCUT SCH (21:11)
[2023-11-03] MEDS: Acetaminophen 325 MG Tab PO PRN (21:11)
[2023-11-04] MEDS: Heparin Sodium 5,000 Units/ML Vial SUBCUT SCH (05:05)
[2023-11-04 05:26] LABS: BASOPHILS PERCENT AUTO 0.4 % (0.0-1.0); EOSINOPHILS ABSOLUTE AUTO 0.1 K/mm3 (0.0-0.4); EOSINOPHILS PERCENT AUTO 1.1 % (0.0-6.0); HEMATOCRIT 29.1 % (37.0-47.0); HEMOGLOBIN 9.5 gm/dl (12.0-16.0); IMMATURE GRAN ABSOLUTE AUTO 0.24 K/mm3 (0.00-0.05); IMMATURE GRAN PERCENT AUTO 2.5 % (0.0-0.4); LYMPHOCYTES ABSOLUTE AUTO 0.8 K/mm3 (1.0-4.8); MEAN CORPUSCULAR HEMOGLOBIN 27.7 pg (28.0-32.0); MEAN CORPUSCULAR HGB CONC 32.6 g/dl (32.0-36.0); MEAN CORPUSCULAR VOLUME 84.8 fl (83.0-99.0); MEAN PLATELET VOLUME 10.4 fl (9.4-12.3); MONOCYTES ABSOLUTE AUTO 0.9 K/mm3 (0.0-0.8); MONOCYTES PERCENT AUTO 9.3 % (0.0-8.0); NEUTROPHILS ABSOLUTE AUTO 7.5 K/mm3 (1.8-7.7); NEUTROPHILS PERCENT AUTO 78.7 % (41.0-71.0); PLATELET COUNT,PLT 348 K/mm3 (150-400); RED BLOOD CELL COUNT 3.43 M/mm3 (4.10-5.30)
[2023-11-04 06:09] LABS: A/G RATIO 0.5 (1-2); ALBUMIN 1.8 g/dl (3.4-5.0); ANION GAP 9.1 (5-15); BILIRUBIN TOTAL 1.9 mg/dL (0.2-1.0); CALCIUM 8.7 mg/dL (8.5-10.1); CREATININE 0.4 mg/dL (0.55-1.02); EST CRCL DRUG DOSING (CG) 116.24 mL/min; POTASSIUM,K 4.1 mEq/L (3.5-5.1); PROTEIN TOTAL,TP 5.6 g/dl (6.4-8.2)
[2023-11-04] MEDS: Sodium Chloride 0.9% 1,000 ML IV SCH ×2 (07:37→20:53)
[2023-11-04] MEDS: Acetaminophen 325 MG Tab PO PRN ×3 (07:37→20:42)
[2023-11-04] MEDS: oxyCODONE 5 MG Tab PO PRN ×2 (10:16→16:50)
[2023-11-04] MEDS: Albuterol/Ipratropium 3.0-0.5 MG/3 ML Neb Soln NEB PRN ×2 (12:46→21:10)
[2023-11-04] MEDS ORDERED: Acetaminophen 325 MG Tab PO PRN (13:49)
[2023-11-04] MEDS ORDERED: Albuterol 6.7 GM Inhaler INH PRN (13:49)
[2023-11-04] MEDS ORDERED: traZODone 50 MG Tab PO PRN (13:58)
[2023-11-04] MEDS: Diltiazem 180 MG Cap.CD PO SCH (14:55)
[2023-11-04] MEDS: Albuterol/Ipratropium 3.0-0.5 MG/3 ML Neb Soln INH SCH (17:50)
[2023-11-04] MEDS: Magnesium Oxide 400 MG Tab PO SCH (20:44)
[2023-11-04] MEDS: predniSONE 10 MG Tab PO SCH (20:44)
[2023-11-04] MEDS: Apixaban 5 MG Tab PO SCH (20:45)
[2023-11-04] MEDS ORDERED: Non-Formulary Medication 1 Each (Budesonide/Glycopyr/Formoterol [Breztri Aerosphere Inhale INH SCH (21:00)
[2023-11-04] MEDS ORDERED: atorvaSTATin 20 MG Tab PO SCH (21:00)
[2023-11-04] MEDS ORDERED: Melatonin 3 MG Tab PO SCH (21:00)
[2023-11-04] MEDS ORDERED: DOXYCYCLINE 100 MG PO SCH (21:00)
[2023-11-05] MEDS: Albuterol/Ipratropium 3.0-0.5 MG/3 ML Neb Soln INH SCH ×3 (00:29→11:14)
[2023-11-05] MEDS: oxyCODONE 5 MG Tab PO PRN ×2 (02:20→08:23)
[2023-11-05 05:30] LABS: BASOPHILS PERCENT AUTO 0.4 % (0.0-1.0); EOSINOPHILS PERCENT AUTO 0.1 % (0.0-6.0); HEMOGLOBIN 9.2 gm/dl (12.0-16.0); IMMATURE GRAN ABSOLUTE AUTO 0.31 K/mm3 (0.00-0.05); IMMATURE GRAN PERCENT AUTO 3.2 % (0.0-0.4); LYMPHOCYTES ABSOLUTE AUTO 0.7 K/mm3 (1.0-4.8); LYMPHOCYTES PERCENT AUTO 7.1 % (24.0-44.0); MEAN CORPUSCULAR HGB CONC 32.9 g/dl (32.0-36.0); MEAN CORPUSCULAR VOLUME 85.1 fl (83.0-99.0); MEAN PLATELET VOLUME 9.8 fl (9.4-12.3); MONOCYTES ABSOLUTE AUTO 0.5 K/mm3 (0.0-0.8); MONOCYTES PERCENT AUTO 5.2 % (0.0-8.0); NEUTROPHILS ABSOLUTE AUTO 8.2 K/mm3 (1.8-7.7); PLATELET COUNT,PLT 368 K/mm3 (150-400); RED BLOOD CELL COUNT 3.29 M/mm3 (4.10-5.30); WHITE BLOOD CELL COUNT,WBC 9.74 K/mm3 (3.9-11.3)
[2023-11-05 06:06] LABS: A/G RATIO 0.4 (1-2); ALBUMIN 1.7 g/dl (3.4-5.0); ANION GAP 9.1 (5-15); BILIRUBIN TOTAL 1.4 mg/dL (0.2-1.0); CALCIUM 8.4 mg/dL (8.5-10.1); CREATININE 0.4 mg/dL (0.55-1.02); EST CRCL DRUG DOSING (CG) 116.24 mL/min; MAGNESIUM 1.9 mg/dL (1.8-2.4); POTASSIUM,K 4.1 mEq/L (3.5-5.1); PROTEIN TOTAL,TP 5.6 g/dl (6.4-8.2)
[2023-11-05] MEDS: Acetaminophen 325 MG Tab PO PRN (06:49)
[2023-11-05] MEDS ORDERED: Pantoprazole 40 MG Tab.CR PO SCH (07:00)
[2023-11-05] MEDS: Apixaban 5 MG Tab PO SCH (08:22)
[2023-11-05] MEDS: predniSONE 10 MG Tab PO SCH (08:22)
[2023-11-05] MEDS: Magnesium Oxide 400 MG Tab PO SCH (08:22)
[2023-11-05] MEDS: Diltiazem 180 MG Cap.CD PO SCH (08:22)
[2023-11-05] MEDS ORDERED: Losartan 100 MG Tab PO SCH (09:00)
[2023-11-05] MEDS ORDERED: Aspirin 325 MG Tab.EC PO SCH (09:00)
[2023-11-05] MEDS ORDERED: Folic Acid 1 MG Tab PO SCH (09:00)
[2023-11-05] MEDS ORDERED: Thiamine 100 MG Tab PO SCH (09:00)
[2023-11-05] MEDS ORDERED: Metoprolol Tartrate 50 MG Tab PO SCH (09:00)
[2023-11-05] MEDS ORDERED: Ascorbic Acid 500 MG Tab PO SCH (09:00)
== END 2023-11-05 13:37 | disposition home or self-care (01) | DRG 948 ==
LOC: JD.ED 12:43 → JD.MS 17:33
PROVIDERS: ADMIT Internal Medicine; ATTEND Internal Medicine
DX: G89.3 Neoplasm related pain (acute) (chronic) (principal); C79.51 Secondary malignant neoplasm of bone; C34.92 Malignant neoplasm of unspecified part of left bronchus or lung; T45.1X5A Adverse effect of antineoplastic and immunosuppressive drugs, initial encounter; J44.9 Chronic obstructive pulmonary disease, unspecified; J43.2 Centrilobular emphysema; E78.00 Pure hypercholesterolemia, unspecified; R74.01 Elevation of levels of liver transaminase levels; I10 Essential (primary) hypertension; M19.90 Unspecified osteoarthritis, unspecified site; R79.89 Other specified abnormal findings of blood chemistry; Z79.01 Long term (current) use of anticoagulants; Z79.51 Long term (current) use of inhaled steroids; Z79.899 Other long term (current) drug therapy; Z99.81 Dependence on supplemental oxygen; Z88.8 Allergy status to other drugs, medicaments and biological substances; I25.2 Old myocardial infarction; Z87.01 Personal history of pneumonia (recurrent); Z87.442 Personal history of urinary calculi; Z93.6 Other artificial openings of urinary tract status; Z86.73 Personal history of transient ischemic attack (TIA), and cerebral infarction without residual deficits; Z98.890 Other specified postprocedural states; Z98.51 Tubal ligation status; Z87.891 Personal history of nicotine dependence; Z56.0 Unemployment, unspecified
CPT/HCPCS: 36415; 71250; 80053; 83735; 84484; 85025; 93005; J3301; 93010; 94640; 94760; 94761; 97162-GP; 99285; A9270-GY; J1170; J1644; J7030; J7512; J7620-GY

== ENCOUNTER 2023-11-16 15:38 | Emergency (ER) | payer MEDICARE, OTHER ==
[2023-11-16 16:40] LABS: BASOPHILS PERCENT AUTO 0.1 % (0.0-1.0); HEMATOCRIT 29.3 % (37.0-47.0); HEMOGLOBIN 9.4 gm/dl (12.0-16.0); IMMATURE GRAN ABSOLUTE AUTO 0.19 K/mm3 (0.00-0.05); IMMATURE GRAN PERCENT AUTO 1.2 % (0.0-0.4); LYMPHOCYTES ABSOLUTE AUTO 0.5 K/mm3 (1.0-4.8); MEAN CORPUSCULAR HEMOGLOBIN 29.1 pg (28.0-32.0); MEAN CORPUSCULAR HGB CONC 32.1 g/dl (32.0-36.0); MEAN CORPUSCULAR VOLUME 90.7 fl (83.0-99.0); MEAN PLATELET VOLUME 9.4 fl (9.4-12.3); MONOCYTES ABSOLUTE AUTO 0.8 K/mm3 (0.0-0.8); MONOCYTES PERCENT AUTO 5.5 % (0.0-8.0); NEUTROPHILS ABSOLUTE AUTO 13.7 K/mm3 (1.8-7.7); NEUTROPHILS PERCENT AUTO 90.2 % (41.0-71.0); PLATELET COUNT,PLT 419 K/mm3 (150-400); RED BLOOD CELL COUNT 3.23 M/mm3 (4.10-5.30); WHITE BLOOD CELL COUNT,WBC 15.23 K/mm3 (3.9-11.3)
[2023-11-16 17:12] LABS: A/G RATIO 0.6 (1-2); ALBUMIN 2.2 g/dl (3.4-5.0); ANION GAP 10.9 (5-15); BILIRUBIN TOTAL 0.7 mg/dL (0.2-1.0); BUN/CREATININE RATIO 21.7 (14-18); C-REACTIVE PROTEIN 3.1 mg/dL (<1.0); CALCIUM 8.9 mg/dL (8.5-10.1); CREATININE 0.6 mg/dL (0.55-1.02); EST CRCL DRUG DOSING (CG) 77.49 mL/min; POTASSIUM,K 4.9 mEq/L (3.5-5.1); PROTEIN TOTAL,TP 6.1 g/dl (6.4-8.2)
[2023-11-16 17:16] LABS: CORONAVIRUS COVID-19 NAA NEGATIVE (NEGATIVE); INFLUENZA A NAA NEGATIVE (NEGATIVE)
[2023-11-16 18:50] LABS: APPEARANCE,URINE CLEAR (Clear); BILIRUBIN,URINE NEGATIVE (Negative); COLOR,URINE YELLOW (Yellow); GLUCOSE,URINE NEGATIVE (Negative); KETONES,URINE TRACE (Negative); LEUKOCYTE ESTERASE,URINE TRACE (Negative); NITRITE,URINE NEGATIVE (Negative); OCCULT BLOOD,URINE NEGATIVE (Negative); PROTEIN,URINE 1+ (Negative)
[2023-11-16 18:59] LABS: BACTERIA,URINE MODERATE /hpf (FEW); MUCUS,URINE MODERATE /hpf (FEW); RBC,URINE 0-5 /hpf (0-5); SQUAMOUS EPITHELIAL CELLS,UR 0-5 /hpf (0-5)
[2023-11-17] MEDS ORDERED: Acetaminophen 325 MG Tab PO ONE (02:39)
== END 2023-11-17 10:07 ==
LOC: JD.ED 15:38
DX: R79.89 Other specified abnormal findings of blood chemistry (principal); E87.1 Hypo-osmolality and hyponatremia; I40.8 Other acute myocarditis; D72.829 Elevated white blood cell count, unspecified; C34.90 Malignant neoplasm of unspecified part of unspecified bronchus or lung; E78.00 Pure hypercholesterolemia, unspecified; J44.9 Chronic obstructive pulmonary disease, unspecified; I10 Essential (primary) hypertension; Z79.899 Other long term (current) drug therapy; Z79.01 Long term (current) use of anticoagulants; Z79.82 Long term (current) use of aspirin; Z20.822 Contact with and (suspected) exposure to COVID-19
CPT/HCPCS: 0240U; 36415; 71045; 80053; 81001; 83880; 84484; 85025; 86140; 87086; 93005; 99285; A9270

== ENCOUNTER 2023-12-01 16:40 | Emergency (ER) | payer MEDICARE, OTHER ==
[2023-12-01] MEDS ORDERED: Sodium Chloride 0.9% 500 ML IV ONE (16:56)
[2023-12-01] MEDS ORDERED: Iopamidol 755 Mg/ML 100 ML Bottle IVPUSH ONE (17:08)
[2023-12-01] MEDS ORDERED: Sodium Chloride 0.9% 10 ML Syringe FLUSH PRN (17:08)
[2023-12-01] MEDS ORDERED: Sodium Chloride 0.9% 100 ML IV SCH (17:15)
[2023-12-01 17:38] LABS: BASOPHILS PERCENT AUTO 0.2 % (0.0-1.0); EOSINOPHILS PERCENT AUTO 0.1 % (0.0-6.0); HEMATOCRIT 38.1 % (37.0-47.0); HEMOGLOBIN 12.8 gm/dl (12.0-16.0); IMMATURE GRAN ABSOLUTE AUTO 0.14 K/mm3 (0.00-0.05); IMMATURE GRAN PERCENT AUTO 0.6 % (0.0-0.4); LYMPHOCYTES ABSOLUTE AUTO 0.8 K/mm3 (1.0-4.8); LYMPHOCYTES PERCENT AUTO 3.5 % (24.0-44.0); MEAN CORPUSCULAR HEMOGLOBIN 30.5 pg (28.0-32.0); MEAN CORPUSCULAR HGB CONC 33.6 g/dl (32.0-36.0); MEAN CORPUSCULAR VOLUME 90.7 fl (83.0-99.0); MEAN PLATELET VOLUME 10.2 fl (9.4-12.3); MONOCYTES ABSOLUTE AUTO 0.8 K/mm3 (0.0-0.8); MONOCYTES PERCENT AUTO 3.6 % (0.0-8.0); NEUTROPHILS ABSOLUTE AUTO 20.2 K/mm3 (1.8-7.7); PLATELET COUNT,PLT 282 K/mm3 (150-400); WHITE BLOOD CELL COUNT,WBC 21.94 K/mm3 (3.9-11.3)
[2023-12-01 17:52] LABS: INR 1.12; PROTHROMBIN TIME 11.9 SECONDS (9.7-12.0)
[2023-12-01 17:53] LABS: PTT,PARTIAL THROMBOPLSTIN TIME 25.8 SECONDS (21.7-31.4)
[2023-12-01 17:58] LABS: A/G RATIO 0.5 (1-2); ALBUMIN 2.5 g/dl (3.4-5.0); ANION GAP 13.8 (5-15); BILIRUBIN TOTAL 1.1 mg/dL (0.2-1.0); CALCIUM 10.5 mg/dL (8.5-10.1); CREATININE 0.7 mg/dL (0.55-1.02); EST CRCL DRUG DOSING (CG) 69.21 mL/min; POTASSIUM,K 4.8 mEq/L (3.5-5.1); PROTEIN TOTAL,TP 7.1 g/dl (6.4-8.2)
[2023-12-01 18:07] LABS: D-DIMER QUANTITATIVE 2.69 mg/L (0.19-0.50)
[2023-12-01 18:11] LABS: SLIDE REVIEW ABNORMAL SMEAR
[2023-12-02 07:55] LABS: BASOPHILS ABSOLUTE AUTO 0.1 K/mm3 (0.0-0.2); BASOPHILS PERCENT AUTO 0.2 % (0.0-1.0); EOSINOPHILS ABSOLUTE AUTO 0.1 K/mm3 (0.0-0.4); EOSINOPHILS PERCENT AUTO 0.2 % (0.0-6.0); HEMOGLOBIN 11.6 gm/dl (12.0-16.0); IMMATURE GRAN ABSOLUTE AUTO 0.17 K/mm3 (0.00-0.05); IMMATURE GRAN PERCENT AUTO 0.8 % (0.0-0.4); LYMPHOCYTES ABSOLUTE AUTO 0.6 K/mm3 (1.0-4.8); LYMPHOCYTES PERCENT AUTO 2.6 % (24.0-44.0); MEAN CORPUSCULAR HEMOGLOBIN 29.2 pg (28.0-32.0); MEAN CORPUSCULAR HGB CONC 33.1 g/dl (32.0-36.0); MEAN CORPUSCULAR VOLUME 88.2 fl (83.0-99.0); MEAN PLATELET VOLUME 9.8 fl (9.4-12.3); MONOCYTES ABSOLUTE AUTO 0.9 K/mm3 (0.0-0.8); MONOCYTES PERCENT AUTO 4.1 % (0.0-8.0); NEUTROPHILS ABSOLUTE AUTO 19.2 K/mm3 (1.8-7.7); NEUTROPHILS PERCENT AUTO 92.1 % (41.0-71.0); PLATELET COUNT,PLT 244 K/mm3 (150-400); RED BLOOD CELL COUNT 3.97 M/mm3 (4.10-5.30); WHITE BLOOD CELL COUNT,WBC 20.83 K/mm3 (3.9-11.3)
[2023-12-02 08:25] LABS: A/G RATIO 0.5 (1-2); ALBUMIN 1.8 g/dl (3.4-5.0); ANION GAP 10.6 (5-15); BILIRUBIN TOTAL 0.6 mg/dL (0.2-1.0); BUN/CREATININE RATIO 27.1 (14-18); CALCIUM 9.5 mg/dL (8.5-10.1); CREATININE 0.7 mg/dL (0.55-1.02); EST CRCL DRUG DOSING (CG) 69.21 mL/min; POTASSIUM,K 4.6 mEq/L (3.5-5.1); PROTEIN TOTAL,TP 5.5 g/dl (6.4-8.2); SLIDE REVIEW ABNORMAL SMEAR
[2023-12-02] MEDS ORDERED: HYDROmorphone 0.5 MG/0.5 ML Syringe IVPUSH ONE ×2 (09:03→13:39)
[2023-12-02] MEDS ORDERED: Codeine/Promethazine 10-6.25 MG/5 ML Syrup 5 ML UD Cup PO ONE (09:03)
== END 2023-12-02 13:50 ==
LOC: JD.ED 16:40
DX: I63.9 Cerebral infarction, unspecified (principal); R79.89 Other specified abnormal findings of blood chemistry; J43.2 Centrilobular emphysema; C34.92 Malignant neoplasm of unspecified part of left bronchus or lung; I10 Essential (primary) hypertension; I25.2 Old myocardial infarction; E78.00 Pure hypercholesterolemia, unspecified; Z79.2 Long term (current) use of antibiotics; Z79.899 Other long term (current) drug therapy; Z79.82 Long term (current) use of aspirin; Z88.8 Allergy status to other drugs, medicaments and biological substances
CPT/HCPCS: 36415; 70450; 70496; 70498; 80053; 82947; 84484; 85025; 85379; 85610; 85730; 93005; 96361; 96374; 96376; 99285; A9270; J1170; J3490; J7030; Q9967